=== PATIENT | male | born 1970 | race Caucasian/White ===

== ENCOUNTER 2024-04-22 20:57 | Inpatient (IN) | payer OTHER, SELFPAY ==
[2024-04-22 09:51] VITALS: BP 154/101
[2024-04-22 10:23] VITALS: BMI 25.2
--- NOTE | 2024-04-22 10:25 | ED.GENMED ---
History of Present Illness
General
Chief Complaint: Abdominal Symptoms
Time Seen by Provider: 04/22/24 10:15
History of Present Illness
History of Present Illness:
53 yo male w/ hx of liver transplant (2006, [facility]) presents for evaluation of abd distention and bloating x 5 days. Minimal flatus. Reports minimal pain, but having difficulty tolerating PO intake, vomiting
for 2 days. No back pain, dysuria, hematuria. Reports marijuana use, denies other illicit substance use. No fevers or chills. Currently follows with [facility].
Past History
Past History
ED Past Medical History: HTN
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
Social History
Tobacco: Non-smoker
Alcohol: None
Personal: Single
Living: with family
Review of Systems
Review of Systems
Allergies reviewed?: Yes
All Other Systems: ROS reviewed and negative except as documented in HPI and ROS
Phy Exam
Physical Exam
Physical Exam:
GEN: Well appearing, NAD, WDWN
Eyes: PERRLA, EOMs intact, no scleral icterus
HENT: NCAT, oral mucosa moist
Lungs: CTAB, no wheezes, rales, rhonchi, normal chest wall excursion
Cardiac: RRR, no M/R/G, no peripheral edema. Radial pulses 2+ bilat
Abdomen: Protuberant/distended abdomen, soft and nonrigid, nontender, prior chevron abdominal incisional scar
Neuro: AO x 3
MSK: No gross deformity or ecchymosis. 1+ pitting edema bilateral lower extremities
Skin: No rashes, petechiae. Normal color, no pallor or jaundice.
Psych: Calm, cooperative, proper hygiene
Course
Orders/Labs/Results
Orders:
Orders
04/22/24 10:25
CT Abd/Pel (IV only)-DH only Urgent
Comment:
Reason For Exam: abd distention/constipation
0.9% Sodium Chloride 1000 ml [Nss] 1,000 ml IV BOLUS
04/22/24 10:30
Alcohol Urgent
Complete Blood Count/With Diff Urgent
Comprehensive Metabolic Panel Urgent
Direct Bilirubin Urgent
Comment: ADD ON
04/22/24 12:00
Add On- LAB Urgent
Tests Added?: direct bilirubin
04/22/24 12:13
Add On- LAB Urgent
Tests Added?: alcohol
04/22/24 12:31
Prothrombin Time Urgent
04/22/24 15:18
Urinalysis Reflex To Culture Urgent
Date Specimen was Collected: 04/22/24
Time Specimen was Collected: 10:58
04/22/24 17:01
HYDROmorphone [Dilaudid] 0.5 mg IV NOW STA
04/22/24 20:00
Mycophenolate [Cellcept] 500 mg PO BID
Tacrolimus [Prograf] 2 mg PO Q12
04/22/24 22:00
Escitalopram Oxalate [Lexapro] 10 mg PO HS
Mirtazapine [Remeron] 15 mg PO HS
Abnormal Lab Results
04/22/24 04/22/24 04/22/24
10:30 12:31 15:18
RBC 4.56 L 10^6/uL
(4.70-6.10)
MCH 31.6 H pg
(27.0-31.0)
RDW 16.8 H %
(11.5-14.5)
Absolute Monos (auto) 1.1 H 10^3/uL
(0.1-0.6)
Lymphocytes % 16.2 L %
(20.5-51.1)
Monocytes % 13.4 H %
(1.7-9.3)
PT 15.2 H Sec
(11.4-14.6)
Sodium 130 L mmol/L
(135-145)
Chloride 92 L mmol/L
(98-107)
Carbon Dioxide 31 H mmol/L
(22-30)
Glucose 103 H mg/dl
(70-99)
Total Bilirubin 6.0 H mg/dl
(0.2-1.3)
Direct Bilirubin 4.0 H mg/dl
(0.0-0.4)
AST 117 H U/L
(17-59)
ALT 89 H U/L
(0-50)
Alkaline Phosphatase 169 H U/L
(38-126)
Albumin 3.3 L g/dl
(3.5-5.0)
Urine Bilirubin 1+ A
(Negative)
Urine Urobilinogen 3+ A
(Neg - 1+)
04/22/24 10:30
04/22/24 10:30
Vital Signs
Initial and Last Documented VS:
Initial Vital Signs
Temp Pulse Resp BP Pulse Ox
98.4 F 99 18 154/101 96
04/22/24 09:51 04/22/24 09:51 04/22/24 09:51 04/22/24 09:51 04/22/24 09:51
Last Documented Vital Signs
Temp Pulse Resp BP Pulse Ox
98.4 F 71 18 151/101 96
04/22/24 09:51 04/22/24 15:41 04/22/24 15:41 04/22/24 15:41 04/22/24 15:41
MDM/Problems Addressed
MDM/Problems Addressed:
Patient is found to be in acute liver failure evidenced by transaminitis, elevated T. bili, and marked ascites on CT scan. I discussed the case with the transplant team at [facility] who accepted him for transfer. Unfortunate there
are no beds available at [facility] at this time and thus we will admit overnight to the hospitalist service pending placement at [facility]. May benefit ultimately from paracentesis for diagnostic and therapeutic purposes but will defer this to the admitting
team
*Critical Care Note
Total Time (30-74mins, 75-104mins- exclusive of procedures): Not Applicable
ED Attending Note
-
Portions of this chart may have been created with voice recognition software.� Occasional wrong word or��sound alike� substitutions may have occurred due to the inherent limitations of voice recognition software.
Discharge Plan
Departure
Patient Disposition: Acute [facility]
Date of Disposition: 04/22/24
Time of Disposition: 12:41
Discharge Problem:
Acute hepatic failure
Prescriptions:
No Action
felodipine 5 MG tablet extended release 24 hr
5 mg PO HS
mycophenolate mofetil 500 MG tablet
1,000 mg PO BID
mirtazapine 15 MG tablet
15 mg PO HS
benazepril [Lotensin] 10 MG tablet
10 mg PO DAILY
lysine [L-Lysine] 500 MG tablet
500 mg PO BID
escitalopram oxalate 10 MG tablet
10 mg PO HS
calcium carb-D3-mag ox-zinc ox [Kenny Mag Zinc Plus D3] 1 EACH tablet
1 ea PO TID
prmyl-4-pvu-epa-ala-vit D3 1 EACH tablet,chewable
1 ea PO TID
cannabidiol [Epidiolex] 1 UNIT solution
1 unit inhalation PRN PRN (Reason: anxiety, depression)
Patient Comments:
smokes daily
mycophenolate mofetil 500 MG tablet
1,000 mg PO BID Qty: 120 0RF
Referrals:
Darlene Anthony MD [Family Provider] -
Hospital Transfer
Other hospital: [facility]
I certify that the patient requires transfer: Yes
Discussed case with accepting physician: Rosina
Reason for transfer: higher level of care
Interventions
Interventions:
*Risk Screen - Suicide Last Done: 04/22/24 09:51
*General Assessment Last Done: 04/22/24 09:51
*Neglect/Abuse Screening Last Done: 04/22/24 09:51
BP-Uzlafo-Anszkxflgr Assessment Last Done: 04/22/24 12:09
Discharge Date and Time
Print Language: CYMRAES
[2024-04-22 10:48] LABS: % Basophils 0.7 % (0-2); % Eosinophils 0.8 % (0-6); % Immature Granulocytes 0.2 % (0-0.5); % Lymphocytes 16.2 % (20.5-51.1); % Monocytes 13.4 % (1.7-9.3); % Neutrophils 68.7 % (42.2-75.2); Absolute Basophils 0.1 10^3/uL (0-0.2); Absolute Eosinophils 0.1 10^3/uL (0-0.7); Absolute Lymphocytes 1.4 10^3/uL (1.2-3.4); Absolute Monocytes 1.1 10^3/uL (0.1-0.6); Absolute Neutrophils 5.7 10^3/uL (1.4-6.5); Hematocrit 42.2 % (39.0-52.0); Hemoglobin 14.4 g/dL (13.0-18.0); Mean Corp Hgb Conc. 34.1 g/dL (33.0-37.0); Mean Corpuscular Hgb 31.6 pg (27.0-31.0); Mean Corpuscular Volume 92.5 fL (80.0-94.0); Nucleated Red Blood Cells % 0 % (-); Platelet Count 233 10^3/uL (130-400); Red Blood Cell Count 4.56 10^6/uL (4.70-6.10); Red Cell Dist. Width 16.8 % (11.5-14.5); White Blood Cell Count 8.4 10^3/uL (4.8-10.8)
[2024-04-22] MEDS: NSS 1000 IV (10:58)
[2024-04-22 11:03] LABS: ALT (SGPT) 89 U/L (0-50); AST (SGOT) 117 U/L (17-59); Albumin 3.3 g/dl (3.5-5.0); Alkaline Phosphatase 169 U/L (38-126); Blood Urea Nitrogen 13 mg/dl (9-20); Calcium 8.6 mg/dl (8.4-10.2); Carbon Dioxide 31 mmol/L (22-30); Chloride 92 mmol/L (98-107); Estimated Creatinine Clearance > 125 ml/min; Glucose 103 mg/dl (70-99); Potassium 3.8 mmol/L (3.5-5.1); Sodium 130 mmol/L (135-145); Total Protein 6.7 g/dl (6.3-8.2); eGFR > 60.00
[2024-04-22 12:49] LABS: INR 1.16; PT 15.2 Sec (11.4-14.6)
[2024-04-22 14:46] LABS: Alcohol None Detected
[2024-04-22 15:34] LABS: Urine Albumin Trace (Neg - Trace); Urine Bilirubin 1+ (Negative); Urine Character Clear (Clear); Urine Color Amber; Urine Glucose Negative (Negative); Urine Ketone Negative (Negative); Urine Leukocyte Negative (Negative); Urine Nitrite Negative (Negative); Urine Occult Blood Negative (Negative); Urine Specific Gravity 1.015 (<1.030); Urine Urobilinogen 3+ (Neg - 1+); Urine pH 6.5 (5.0-9.0)
[2024-04-22 15:41] VITALS: BP 151/101
[2024-04-22] MEDS: DILAUDID 0.5 MG IV ×2 (17:09→23:34)
--- NOTE | 2024-04-22 18:14 | ED TECH ---
A Call was placed to [facility] @18:00 pm to check on the Bed status, and still no bed available.Enmanuel Cruz Notified.
--- NOTE | 2024-04-22 19:43 | HPS.HSE ---
Family Physician
-
Family Physician: Darlene Anthony MD
Chief Complaint
-
Abdominal distention and abdominal pain
History of Present Illness
This is a 53-year-old with history of Elijah's disease status post liver transplant in 2005 presenting to the emergency department with approximately 1 week of increasing abdominal pain and distention.
Patient reported that he had blood drawn on routine follow-up a few months ago and was told that his labs were completely normal. Then he started feeling sick about 1/2 weeks ago. Reports nausea increasing abdominal girth right upper quadrant
pain, bloating, and two non-bloody non bilous emesis. Denies having any fevers or chills. Denies any changes to the color of his skin or eyes. Patient denies any alcohol. He reports compliance with his rejection medications. He denies any other
medical medication changes. He denies any Tylenol use. He denies any NSAIDs. He has decreased p.o. intake but denies any vomiting. He denies history of varices and currently denies any melena or hematochezia.
In the emergency department he was afebrile, blood pressure was 150/100 with a pulse of 71. He was satting 96% on room air. CBC was unremarkable with normal white count hemoglobin and platelet counts. Electrolytes were also within normal limits
only except for a sodium of 130. BUN/creatinine were normal. Total bilirubin was 6 with a direct bilirubin of 4 ALT 117 and AST 89. UA was unremarkable. A CT of the abdomen and pelvis shows large ascites, cirrhosis with portal hypertension.
Medical History
Past Medical History
Past Medical History: Reports HTN
Additional Past Medical History:
Elijah disease status post liver transplantation
Past Surgical History: Reports Other (Liver transplantation 2005)
Additional Past Surgical History:
Liver Tx
AVM s/p craniectomy and plate placed
Social History
Tobacco: Non-smoker
Alcohol: Occasional
Drug: Marijuana
Personal: Single
Living: Alone
Family History
Family History: Not pertinent
Allergies / Home Medications
Allergies reflects when Allergies were last updated in [employer].
Home Medications with original date entered in [employer]
Allergy/Medication List:
Allergies
Allergy/AdvReac Type Severity Reaction Status Date / Time
No Known Allergies Allergy Verified 04/22/24 09:51
Home Medications
benazepril 10 mg tablet (Lotensin) 10 mg PO DAILY 02/27/20
cannabidiol 100 mg/mL oral solution (Epidiolex) 1 unit inhalation PRN PRN anxiety, depression 02/27/20
escitalopram oxalate 10 mg tablet 10 mg PO HS 02/27/20
mirtazapine 15 mg tablet 15 mg PO HS 02/27/20
mycophenolate mofetil 500 mg tablet 1,000 mg PO BID 02/27/20
Review of Systems
-
History Source: Patient
Constitutional: Reports No Symptoms
EENT: Reports No Symptoms
Respiratory: Reports No Symptoms
Cardiac: Reports No Symptoms
Abdomen/GI: Reports Abdominal Pain and Nausea
: Reports No Symptoms
Musculoskeletal: Reports No Symptoms
Skin: Reports No Symptoms
Neurological: Reports No Symptoms
Endocrine: Reports No Symptoms
Hematologic/Lymphatic: Reports No Symptoms
Psych: Reports No Symptoms
Physical Exam
Vital Signs
Vital Signs
Temp Pulse Resp BP Pulse Ox
98.4 F 71 18 151/101 96
04/22/24 09:51 04/22/24 15:41 04/22/24 15:41 04/22/24 15:41 04/22/24 15:41
Physical Exam
General: Well Developed, Comfortable and Conversant
HEENT: NormoCephalic, Anicteric, Moist mucous membranes and Atraumatic
Respiratory: Clear
Cardiac: S1/S2 and Regular Rhythm
Breast: Deferred by me
GI: Tender and Distended
Rectal: Deferred by Provider
Genito-urinary: Deferred by me
Musculoskeletal: No Clubbing, No Cyanosis, Edema, Left Lower Extremity (trace) and Edema, Right Lower Extremity (trace)
Skin: Warm
Neuro: AO x 3, Nonfocal/grossly intact and Other (no asterixis)
Hematologic/Lymphatic: No Lymphadenopathy
Psych: Calm
Laboratory Results
-
04/22/24 10:30
04/22/24 10:30
Laboratory Results
PT 15.2 Sec (11.4-14.6) H 04/22/24 12:31
INR 1.16 04/22/24 12:31
Total Bilirubin 6.0 mg/dl (0.2-1.3) H 04/22/24 10:30
AST 117 U/L (17-59) H 04/22/24 10:30
ALT 89 U/L (0-50) H 04/22/24 10:30
Alkaline Phosphatase 169 U/L (38-126) H 04/22/24 10:30
Data Reviewed
-
CT Scan: Report Reviewed by me
Lab Data: Labs Reviewed by me
Old Records: Reviewed
Impression/Plan
-
IMPRESSION:
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
this year and developed abdominal swelling and pain over the last 1/2 weeks. He has jaundice. Patient reports that he has never had a paracentesis since his transplant. He denies any changes to his antirejection medications and reports complete
compliance. He denies any alcohol use. He denies any Tylenol use. Evaluation here shows cirrhosis with portal hypertension and large volume ascites. No evidence of GI bleed.
PLAN:
Acute/Subacute Liver injury - Differential includes acute hepatitis, acute/subacute rejection/ medications or infection. Cannot rule out portal vein thrombosis but no evidence on CT scan.
- admit to med/surg
- acute hepatitis panel
- trend lft and check ammonia level
- tylenol level
- etoh level is negative
- check tac level
- diagnostic and therapeutic paracentesis
- continue cellcept 500 bid and tac 1mg bid for now
- likely will need biopsy, accepted at [facility] and awaiting transfer
- gi consult
DVT PPX - lovenox sq for now
[2024-04-22] MEDS: LEXAPRO 10 MG PO (21:44)
[2024-04-22] MEDS: REMERON 15 MG PO (21:44)
[2024-04-22] MEDS: PROGRAF 1 MG PO (21:44)
[2024-04-22] MEDS: CELLCEPT 500 MG PO (21:44)
[2024-04-22 22:09] VITALS: BP 161/104
[2024-04-22 23:00] VITALS: BP 159/102; BMI 25.6
[2024-04-22] MEDS: ZOFRAN 4 MG IV (23:45)
--- NOTE | 2024-04-23 06:50 | CON.GI ---
Addendum entered and electronically signed by Christina Stuart MD 04/23/24 16:05:
I saw and examined the patient.
The HYDRAULIC PLUMBER or PA's note was reviewed and I agree with the note.
Comment: 53-year-old male with history of Elijah's disease status post OLT in 2005 in [facility], currently on immunosuppression with tacrolimus and mycophenolate mofetil, managed by Dr. Hooker at [place] though last seen at least a couple of
years ago now presenting with abdominal discomfort, bloating and distention in the last week apart from episodes of vomiting bilious material on and off. He does report chronic constipation but other than that he reports that he has been healthy.
Denies any history of GI bleeding, does not take any laxatives on a regular basis. No unintentional weight loss or NSAID use. No alcohol use.
In the emergency room, CBC was within normal limits, CMP showed total bilirubin of 6.0 with a direct of 4.0, AST of 117, ALT of 89 and alkaline phosphatase of 169 with albumin of 3.3 and alpha-fetoprotein of 4.1. Blood alcohol level negative.
Hepatitis A/B/C serologies negative. No previous upper endoscopy or colonoscopy.
In the emergency room, CT scan of the abdomen and pelvis with IV contrast only showing evidence of large volume abdominal pelvic ascites, evidence of cirrhosis of the liver with portal hypertensive changes.
Diagnostic/therapeutic paracentesis done by IR with 6.5 L of straw-colored ascitic fluid removed.
SSAG >1.1 with history of portal hypertensive etiology for the ascites, no evidence of SBP.
-Decompensated liver disease with cirrhosis post liver transplant for Elijah's disease , currently on immunosuppression. [id number]
Hepatitis serologies negative and alpha-fetoprotein negative
Tacrolimus level pending
Limited abdominal imaging without any evidence of liver lesions
Unclear etiology for decompensation at this time, no evidence of GI bleeding or infection.
He is scheduled to be transferred to [place] this evening to his primary material requisitioner Dr. Hooker.
Will follow patient closely until transfer.
Original Note:
Consultation
-
Date/Time Consultation Requested: 04/22/24 6330
Date/Time Consultation Performed: 04/23/24 0840
Requesting Provider: Ángela Gonzalez MD
Performing Provider: VISHNU Washburn, Christina Stuart MD
Reason for Consultation: new onset ascites
Medical History
Chief Complaint / HPI
Chief Complaint: abdominal distention
History of Present Illness:
Pt is a 53yo with hx Elijah's disease with liver transplant in 2005 at [facility](follows with Dr. Hooker at [place]--last visit several years ago and last labs 3-6 months ago) , AVM with prior cranial surgery, prior
moise, HTN, depression, PTSD, lipoma resection and now presents with 5 days of bloating. On admission noted with stable CBC with normal platelets, INR 1.16, creat 0.9, Na 130, bili 6, D bili 4, AST 117, ALT 89, alk phos [address] was
completed on admission with hepatic cirrhosis, portal HTN changes and large volume of ascites.
In review with patient he admits to increased GERD and vomiting small amount of non bloody emesis. He also admits to abdominal pressure and constipation with no stools for several days. He otherwise admits to wt gain but denies dysphagia,
hematemesis, diarrhea, or rectal bleeding. Last EGD/colon completed prior to transplant in 2005. No issue with confusion or sleepiness prior to admission. Pt has been accepted at [place] and due for transfer.
Past Medical History
Past Medical History: HTN, Hypothyroidism, Psychiatric (anxiety/depression) and Other (Elijah's disease s/p liver transplant 2006 on chronic suppressive therapy, right neck lipoma with excision, RLQ abdominal wall lipoma resection, DDD, frontal
AVM's, PTSD, inguinal hernia per CT)
Past Surgical History: Brain (AVM with portionof skill removed and plate placed), Cholecystectomy and Other (liver transplant 2006, adrenalectomy per CT)
Social History
Tobacco: Non-Smoker
Alcohol: None
Drug: Marijuana
Living: Alone
Employment: Public Assistance
Family History
Family History: Other (sister with hx Elijah's disease )
Allergies / Home Medications
Allergy/AdvReac Type Severity Reaction Status Date / Time
No Known Allergies Allergy Verified 04/22/24 09:51
�Medication �Instructions �Recorded
benazepril 10 mg tablet (Lotensin) 10 mg PO DAILY 02/27/20
escitalopram oxalate 10 mg tablet 10 mg PO HS 02/27/20
mirtazapine 15 mg tablet 15 mg PO HS 02/27/20
mycophenolate mofetil 500 mg tablet 500 mg PO BID 02/27/20
tacrolimus 1 mg capsule, 1 mg PO Q12H 04/22/24
immediate-release
Review of Systems
-
History Source: Patient
Constitutional: Reports Weight Gain
EENT: Reports No Symptoms
Respiratory: Reports No Symptoms
Cardiac: Reports No Symptoms
Abdomen/GI: Reports Abdominal Pain, Nausea, Vomiting and Constipated
: Reports No Symptoms
Musculoskeletal: Reports No Symptoms
Skin: Reports No Symptoms
Neurological: Reports Weakness
Endocrine: Reports No Symptoms
Hematologic/Lymphatic: Reports No Symptoms
Vital Signs
Temp Pulse Resp BP Pulse Ox
97.5 F 63 18 159/102 95
04/22/24 23:00 04/22/24 23:00 04/22/24 23:00 04/22/24 23:00 04/22/24 23:00
Physical Exam
Exam
General: Well Developed, Well Nourished and No Apparent Distress
HEENT: Normocephalic and Anicteric
Respiratory: Clear
Cardiac: Regular Rhythm
GI: Soft, Tender (mild ) and Distended
Musculoskeletal: No Clubbing and No Cyanosis
Skin: Warm and Dry
Neuro: Awake, Alert and AO x 3
Psych: Calm
Results
WBC 8.4 10^3/uL (4.8-10.8) 04/22/24 10:30
Hgb 14.4 g/dL (13.0-18.0) 04/22/24 10:30
Hct 42.2 % (39.0-52.0) 04/22/24 10:30
MCV 92.5 fL (80.0-94.0) 04/22/24 10:30
Plt Count 233 10^3/uL (130-400) 04/22/24 10:30
Absolute Neuts (auto) 5.7 10^3/uL (1.4-6.5) 04/22/24 10:30
PT 15.2 Sec (11.4-14.6) H 04/22/24 12:31
INR 1.16 04/22/24 12:31
Sodium 130 mmol/L (135-145) L 04/22/24 10:30
Potassium 3.8 mmol/L (3.5-5.1) 04/22/24 10:30
Chloride 92 mmol/L (98-107) L 04/22/24 10:30
Carbon Dioxide 31 mmol/L (22-30) H 04/22/24 10:30
BUN 13 mg/dl (9-20) 04/22/24 10:30
Creatinine 0.9 mg/dL (0.7-1.3) 04/22/24 10:30
Calcium 8.6 mg/dl (8.4-10.2) 04/22/24 10:30
Total Bilirubin 6.0 mg/dl (0.2-1.3) H 04/22/24 10:30
AST 117 U/L (17-59) H 04/22/24 10:30
ALT 89 U/L (0-50) H 04/22/24 10:30
Alkaline Phosphatase 169 U/L (38-126) H 04/22/24 10:30
Hepatitis A IgM Ab Cancelled 04/22/24 20:00
Hep Bs Antibody Cancelled 04/22/24 20:00
Hep B Core IgM Ab Cancelled 04/22/24 20:00
Hepatitis C Antibody Cancelled 04/22/24 20:00
Diagnostic Image Results:
04/22/24 CT Abd/Pel (IV only)-DH only
1. Hepatic cirrhosis. Portal hypertension changes.
2. Large volume of abdominopelvic ascites.
Prior GI Procedures:
EGD: last prior to 2005
Colonoscopy: last prior to 2005
Assessment / Plan
-
Pt is a 53yo with hx Elijah's disease with liver transplant in 2005 at [facility], AVM with prior cranial surgery, prior moise, HTN, depression, PTSD, lipoma resection and now presents with 5 days of bloating. On
admission noted with stable CBC with normal platelets, INR 1.16, creat 0.9, Na 130, bili 6, D bili 4, AST 117, ALT 89, alk phos [address] was completed on admission with hepatic cirrhosis, portal HTN changes and large volume of ascites.
-new onset ascites
-CT with changes of cirrhosis/portal HTN
-hx Elijah's disease with prior liver transplant in [place] in 2005
-hyponatremia
-mild hypoalbuminemia
other med problems:
-AVM with prior cranial surgery
-HTN
-depression
-PTSD
-lipoma resection
-CT with adrenalectomy
-CT with inguinal hernia
PLAN:
Etiology of new ascites related to decompensated liver disease and cirrhosis vs other etiology - will need to calculate SAAG and eval for cardiac, malignancy vs other
agree with paracentesis for fluid analysis and cytology
MELD 3.0 19
hepatitis and tac level pending
add AFP
pt is for transfer to [place]-- will need follow up via transfer vs if transfer delayed OP follow up-- pt did state some difficulty with rides to [facility] but advised will need at least telehealth visit and also reviewed follow up with Dr. Mistry at
[facility].
cont to follow
-
-
Thank you for consultation and allowing me to participate in the patient's care. Please call the nuclear control operator GI physician during the after hours with any questions or concerns.
[2024-04-23 07:17] VITALS: BP 151/86
[2024-04-23 08:13] LABS: Ammonia 9 umol/L (9-30)
[2024-04-23 08:23] LABS: Hematocrit 40.4 % (39.0-52.0); Mean Corp Hgb Conc. 34.7 g/dL (33.0-37.0); Mean Corpuscular Hgb 32.1 pg (27.0-31.0); Mean Corpuscular Volume 92.7 fL (80.0-94.0); Mean Platelet Volume 9.5 fL (7.4-10.4); Platelet Count 196 10^3/uL (130-400); Red Blood Cell Count 4.36 10^6/uL (4.70-6.10); Red Cell Dist. Width 16.5 % (11.5-14.5); White Blood Cell Count 9.6 10^3/uL (4.8-10.8)
[2024-04-23 08:31] LABS: INR 1.22; PT 15.7 Sec (11.4-14.6)
[2024-04-23 08:58] LABS: Blood Urea Nitrogen 17 mg/dl (9-20); Calcium 8.1 mg/dl (8.4-10.2); Carbon Dioxide 32 mmol/L (22-30); Chloride 91 mmol/L (98-107); Estimated Creatinine Clearance > 125 ml/min; Glucose 90 mg/dl (70-99); Sodium 129 mmol/L (135-145); eGFR > 60.00
[2024-04-23] MEDS: DILAUDID 0.5 MG IV ×2 (09:01→14:56)
[2024-04-23] MEDS: ZESTRIL 10 MG PO (09:02)
[2024-04-23] MEDS: ZOFRAN 4 MG IV ×2 (09:02→14:57)
[2024-04-23] MEDS: CELLCEPT 500 MG PO (09:02)
[2024-04-23] MEDS: PROGRAF 1 MG PO (09:03)
[2024-04-23 09:04] LABS: Potassium 4.2 mmol/L (3.5-5.1)
[2024-04-23 09:23] LABS: Hepatitis B Surface Antigen Negative (Negative)
[2024-04-23 09:41] LABS: Hepatitis B Core Ab, Total Negative (Negative); Hepatitis B Surface Antibody Negative; Hepatitis C Antibody Negative (Negative)
[2024-04-23 10:05] VITALS: BP 157/108; BP_SYST 69
[2024-04-23 11:08] LABS: Hepatitis A IgM Antibody Negative (Negative)
[2024-04-23 11:42] VITALS: BP 147/105; BP_SYST 66
[2024-04-23 11:52] VITALS: BP 147/105
[2024-04-23 12:37] LABS: Body Fluid WBC 84 /CUMM
[2024-04-23 12:38] LABS: Body Fluid Mononuclear 70.3 %; Body Fluid Polymorphonuclear 29.7 %
[2024-04-23 13:16] LABS: Body Fluid Second Tech AMA
[2024-04-23 14:17] LABS: Body Fluid Albumin < 1.0 g/dl; Body Fluid LDH < 90 U/L; Body Fluid Protein < 2.0 g/dl
--- NOTE | 2024-04-23 15:49 | CM ---
Alert awake oriented patient who lives alone in a studio with 1 step to enter.He is independent in all activities of daily living.He has follow up care at [facility] for liver transplant.Pt for transfer to [facility] when bed available.
Pharmacy [facility]
PCP DR Betancur
PLAN To [facility] when bed available
[2024-04-23 15:58] VITALS: BP 124/82
--- NOTE | 2024-04-23 16:23 | PTCARENOTE ---
report given to danii edgar
[2024-04-23 16:30] LABS: Body Fluid Amylase < 30 U/L
== END 2024-04-23 16:48 | disposition short-term general hospital (02) | DRG 442 ==
LOC: 4 EAST ACU 20:57
PROVIDERS: Physician Assistant; Radiology Vascular & Interventional Radiology; ADMITTING PHYSICIAN Internal Medicine; ATTENDING PHYSICIAN Internal Medicine; CONSULT PHYSICIAN Internal Medicine Gastroenterology; EMERGENCY PHYSICIAN Emergency Medicine; FAMILY PHYSICIAN Emergency Medicine
PROC: 0W9G3ZZ Drainage of Peritoneal Cavity, Percutaneous Approach (ICD-10-PCS; 2024-04-23)
DX: T86.49 Other complications of liver transplant (principal); D84.821 Immunodeficiency due to drugs; E87.1 Hypo-osmolality and hyponatremia; R18.8 Other ascites; K76.6 Portal hypertension; K74.60 Unspecified cirrhosis of liver; E03.9 Hypothyroidism, unspecified; F32.A Depression, unspecified; F41.9 Anxiety disorder, unspecified; F43.10 Post-traumatic stress disorder, unspecified; I10 Essential (primary) hypertension; K21.9 Gastro-esophageal reflux disease without esophagitis; K59.09 Other constipation; Y83.0 Surgical operation with transplant of whole organ as the cause of abnormal reaction of the patient, or of later complication, without mention of misadventure at the time of the procedure; Z79.621 Long term (current) use of calcineurin inhibitor; Z79.624 Long term (current) use of inhibitors of nucleotide synthesis
CPT/HCPCS: 88305; 49083; 74177; 80048; 80053; 80197; 81003; 82042; 82077; 82105; 82140; 82150; 82248; 83615; 84157; 85025; 85027; 85610; 86704; 86706; 86709; 86803; 87015; 87070; 87205; 87340; 88112; 88341; 88342; 89051; 96361; 96374; 99284; Q9967

== ENCOUNTER 2024-05-03 16:20 | Inpatient (IN) | payer OTHER, SELFPAY ==
[2024-05-03] VITALS (15 sets, daily range): BP systolic 114–155; BP diastolic 83–109; PULSE 64–80; BMI 23.1
--- NOTE | 2024-05-03 12:04 | ED.GENMED ---
ED Provider Triage
<Martell Cruz PA-C - Last Filed: 05/03/24 12:06>
-
Patient seen by provider in Triage?: Seen in Triage
53 yo male w/ hx of liver transplant here with hematemesis. prior hx of variceal bleeding prior to hepatic transplant. Was here in March for new jaundice and ascites, underwent paracentesis >6L. Was subseqeuently transferred to [facility]. Denies
fevers. Denies ETOH use.
Remains jaundiced, clinically stable. Non distended abdomen. No active vomiting/wretching.
Check CBC, CMP, type and screen, coags.
History of Present Illness
<Martell Cruz PA-C - Last Filed: 05/03/24 12:06>
General
Chief Complaint: Vomiting Blood
Time Seen by Provider: 05/03/24 12:34
<Adrián Arvizu MD - Last Filed: 05/03/24 19:41>
General
Source: patient
Exam Limitations: none
Nursing documentation reviewed up to this point in time: agreed with
History of Present Illness
History of Present Illness:
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
vomiting episodes, which patient describes as 'mouthful'. Patient also reports having had multiple bowel movements, which were nonbloody. Denies abdominal pain. Denies fever. Denies coughing. Denies dizziness. Denies weakness. Denies
shortness of breath. Patient states that he is currently being evaluated for potential second liver transplant.
Past History
<Martell Cruz PA-C - Last Filed: 05/03/24 12:06>
Past History
ED Past Medical History: HTN
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
Social History
Tobacco: Non-smoker
Alcohol: None
Personal: Single
Living: with family
Review of Systems
<Adrián Arvizu MD - Last Filed: 05/03/24 19:41>
Review of Systems
Allergies reviewed?: Yes
All Other Systems: ROS reviewed and negative except as documented in HPI and ROS
Constitutional: Reports no symptoms
Respiratory: Reports no symptoms
Cardiac: Reports no symptoms
ABD/GI: Reports vomiting and other (Hematemesis); Denies abdominal pain
: Reports no symptoms
Musculoskeletal: Reports no symptoms
Skin: Reports no symptoms
Neurological: Reports no symptoms; Denies weakness
Phy Exam
<Adrián Arvizu MD - Last Filed: 05/03/24 19:41>
Physical Exam
Physical Exam:
Physical Exam
General: no apparent distress, not acutely ill. afebrile
Head: nc/at. eomi
Neck: supple. no meningeal signs.
Heart: s1/s2 regular rate and rhythm, no murmur. equal radial pulses.
Lungs: no acute respiratory distress. clear bilaterally
Abdomen: normal bowel sounds. not tender, but with mild distention
Neuro: alert and oriented x 3. no focal neurological deficits
Skin: no rash
Psychiatric: well kept. interactive and cooperative
Extremities: no edema. no calf tenderness.
Course
<Martell Cruz PA-C - Last Filed: 05/03/24 12:06>
Orders/Labs/Results
Orders:
Orders
05/03/24 Breakfast
NPO
Allow oral meds: Yes
Allow clear liquids: No
05/03/24 12:09
Blood Group&Type Urgent
BBK Wristband Number:
Basic Metabolic Panel Urgent
Complete Blood Count/With Diff Urgent
Prothrombin Time Urgent
05/03/24 12:40
Pantoprazole [Protonix IV] 80 mg IV NOW STA
05/03/24 13:01
Type+Screen Urgent
BBK Wristband Number:
Comprehensive Metabolic Panel Urgent
05/03/24 14:18
IV Insert/Care/Rem.- Treatment PRN
Octreotide [Sandostatin] 50 mcg IV NOW STA
Pantoprazole 80 mg/100 ml Nss [Protonix] 80 mg in 100 ml IV NOW
05/03/24 14:28
Octreotide Acetate [Sandostatin] 600 mcg 0.9% Sodium Chloride 500 ml [Nss] 500 ml IV NOW
05/03/24 14:57
CefTRIAXone [Rocephin] 1,000 mg IV NOW STA
05/03/24 14:59
Sterile Water [Sterile Water For Injection] 10 ml IV NOW STA
05/03/24 15:01
Obtain Records As Directed
Dates of Information to be Released: 03/2024
Type of Information Requested: Other
If Other, list type of info requested: liver biopsy, discharge summary, labs, testing
Obtain Records from: [facility]
05/03/24 15:03
Admit/Transfer Patient As Directed
Co-Sign Provider:
Level of Care: Inpatient admission
Assign to:: Telemetry
Physician / Group: nathan bailey
Diagnosis: GL bleed
Reason for Telemetry: Other
Other Reason for Telemetry: GI bleed
Date to Stop Telemetry: 05/05/24
Time to Stop Telemetry: 11:00
Reason for Hospitalization: GI bleed
Expected length of stay greater than two midnights?: Yes
ELOS- Estimated Length of Stay in days: 3
I certify the patient meets the requirements for IP care: Yes
PRN Pain Medication Management As Directed
May give lesser potent ordered pain med per pt: Yes
preference::
Protocol:: Medication orders for pain may be administered in a
manner that supports deferring to patient preference
when the pt is:
- Requesting an ordered lesser potent pain medication.
Least to most potent pain medications are defined
as: acetaminophen < NSAID < tramadol < opioids
(morphine, oxycodone, hydromorphone).
- Requesting a lesser dose of the same medication IF
ORDERED.
- Requesting a less intrusive route of administration
if both routes are prescribed by the provider (PO <
IV).
05/03/24 15:05
Code Status As Directed
Resuscitation Status: Full Code
05/03/24 15:26
Midazolam HCl [Versed] 2 mg .ROUTE .STK-MED ONE
05/03/24 15:27
Glycopyrrolate [Robinul] 0.2 mg .ROUTE .STK-MED ONE
Lidocaine 2% Mpf [Xylocaine Mpf 2%] 100 mg .ROUTE .STK-MED ONE
Propofol [Diprivan] 80 ml .ROUTE .STK-MED
05/03/24 16:06
Fluid Culture with Gram Stain Routine
LISA Source: Peritoneal Fluid
Specimen Description:
Comment: Post Procedure
05/03/24 16:07
IRAD CONSULT Routine
Consulting Provider: Julio Ricardo
Was physician already notified: Yes
Reason for Consult/Procedure: paracentesis as tolerated to rule out SBP
Acknowledgement that appropriate orders are entered: Yes
Body Fluid Albumin Routine
Fluid Source: Peritoneal (Ascites)
Body Fluid Cell Count Routine
What is the Body Fluid: peritoneal fluid
Comment: post procedure
Body Fluid Protein Routine
Fluid Source: Peritoneal (Ascites)
Notify MD As Directed
Notify physician if: Notify GI provider workers compensation defense attorney of volume removed when paracentesis complete.
05/03/24 16:28
Pantoprazole 80 mg/100 ml Nss [Protonix] 80 mg in 100 ml IV Q10H
05/03/24 16:28
GASTROINTESTINAL CONSULT Routine
Consulting Provider: Omaira Baires
Was physician already notified: Yes
Activity As Directed
Activity Level: As Tolerated
Compression Sleeves [Pneumatic Compression Sleeves] As Directed
Type: Thigh high
INT (Intravenous Needle Therapy) As Directed
Comment: Place 2 IV catheters of the largest bore possible until stable
Orthostatic Vital Signs As Directed
Orthostatic VS Frequency: Now
Comment: then every four hours for twenty-four hours
Vital Signs As Directed
Frequency: Per unit guidelines
DX Deep Vein Thrombosis Video Routine
05/03/24 18:08
H&H Q6H
05/03/24 20:00
Carvedilol [Coreg] 6.25 mg PO BID
Magnesium l-Lactate [Mag-Tab Sr] 84 mg PO BID
Simethicone [Mylicon] 80 mg PO BID
Tacrolimus [Prograf] 0.5 mg PO Q12H
05/03/24 22:00
Escitalopram Oxalate [Lexapro] 10 mg PO HS
Mirtazapine [Remeron] 15 mg PO HS
05/04/24 00:00
H&H Q6H
05/04/24 02:00
Octreotide Acetate [Sandostatin] 600 mcg 0.9% Sodium Chloride 500 ml [Nss] 500 ml IV Q12H
05/04/24 06:00
Ammonia IN AM
Complete Blood Count/No Diff IN AM
Comprehensive Metabolic Panel IN AM
H&H Q6H
05/04/24 08:00
Pantoprazole [Protonix IV] 40 mg IV BID
05/04/24 16:00
CefTRIAXone [Rocephin] 1,000 mg IV Q24H
Sterile Water [Sterile Water For Injection] 10 ml IV Q24H
05/05/24 06:00
Comprehensive Metabolic Panel IN AM
05/05/24 11:00
DC Protocol for Telemetry ONCE
05/06/24 06:00
Comprehensive Metabolic Panel IN AM
05/07/24 06:00
Comprehensive Metabolic Panel IN AM
Abnormal Lab Results
05/03/24 05/03/24
12:09 13:01
RBC 4.23 L 10^6/uL
(4.70-6.10)
Hct 38.8 L %
(39.0-52.0)
MCH 31.9 H pg
(27.0-31.0)
RDW 15.2 H %
(11.5-14.5)
Absolute Monos (auto) 1.0 H 10^3/uL
(0.1-0.6)
Lymphocytes % 19.3 L %
(20.5-51.1)
Monocytes % 13.8 H %
(1.7-9.3)
PT 14.8 H Sec
(11.4-14.6)
Sodium 130 L mmol/L 132 L mmol/L
(135-145) (135-145)
Chloride 96 L mmol/L 97 L mmol/L
(98-107) (98-107)
Glucose 111 H mg/dl 108 H mg/dl
(70-99) (70-99)
Calcium 8.3 L mg/dl
(8.4-10.2)
Total Bilirubin 2.9 H mg/dl
(0.2-1.3)
AST 107 H U/L
(17-59)
ALT 70 H U/L
(0-50)
Alkaline Phosphatase 132 H U/L
(38-126)
Total Protein 6.1 L g/dl
(6.3-8.2)
Albumin 3.1 L g/dl
(3.5-5.0)
05/03/24 12:09
05/03/24 13:01
Vital Signs
Initial and Last Documented VS:
Initial Vital Signs
Temp Pulse Resp BP Pulse Ox
98.0 F 61 20 123/83 98
05/03/24 11:59 05/03/24 11:59 05/03/24 11:59 05/03/24 11:59 05/03/24 11:59
Last Documented Vital Signs
Temp Pulse Resp BP Pulse Ox
97.7 F 64 16 148/99 98
05/03/24 18:40 05/03/24 18:40 05/03/24 18:40 05/03/24 18:40 05/03/24 18:40
<Adrián Arvizu MD - Last Filed: 05/03/24 19:41>
Orders/Labs/Results
Orders:
Orders
05/03/24 Breakfast
NPO
Allow oral meds: Yes
Allow clear liquids: No
05/03/24 12:09
Blood Group&Type Urgent
BBK Wristband Number:
Basic Metabolic Panel Urgent
Complete Blood Count/With Diff Urgent
Prothrombin Time Urgent
05/03/24 12:40
Pantoprazole [Protonix IV] 80 mg IV NOW STA
05/03/24 13:01
Type+Screen Urgent
BBK Wristband Number:
Comprehensive Metabolic Panel Urgent
05/03/24 14:18
IV Insert/Care/Rem.- Treatment PRN
Octreotide [Sandostatin] 50 mcg IV NOW STA
Pantoprazole 80 mg/100 ml Nss [Protonix] 80 mg in 100 ml IV NOW
05/03/24 14:28
Octreotide Acetate [Sandostatin] 600 mcg 0.9% Sodium Chloride 500 ml [Nss] 500 ml IV NOW
05/03/24 14:57
CefTRIAXone [Rocephin] 1,000 mg IV NOW STA
05/03/24 14:59
Sterile Water [Sterile Water For Injection] 10 ml IV NOW STA
05/03/24 15:01
Obtain Records As Directed
Dates of Information to be Released: 03/2024
Type of Information Requested: Other
If Other, list type of info requested: liver biopsy, discharge summary, labs, testing
Obtain Records from: [facility]
05/03/24 15:03
Admit/Transfer Patient As Directed
Co-Sign Provider:
Level of Care: Inpatient admission
Assign to:: Telemetry
Physician / Group: nathan bailey
Diagnosis: GL bleed
Reason for Telemetry: Other
Other Reason for Telemetry: GI bleed
Date to Stop Telemetry: 05/05/24
Time to Stop Telemetry: 11:00
Reason for Hospitalization: GI bleed
Expected length of stay greater than two midnights?: Yes
ELOS- Estimated Length of Stay in days: 3
I certify the patient meets the requirements for IP care: Yes
PRN Pain Medication Management As Directed
May give lesser potent ordered pain med per pt: Yes
preference::
Protocol:: Medication orders for pain may be administered in a
manner that supports deferring to patient preference
when the pt is:
- Requesting an ordered lesser potent pain medication.
Least to most potent pain medications are defined
as: acetaminophen < NSAID < tramadol < opioids
(morphine, oxycodone, hydromorphone).
- Requesting a lesser dose of the same medication IF
ORDERED.
- Requesting a less intrusive route of administration
if both routes are prescribed by the provider (PO <
IV).
05/03/24 15:05
Code Status As Directed
Resuscitation Status: Full Code
05/03/24 15:26
Midazolam HCl [Versed] 2 mg .ROUTE .STK-MED ONE
05/03/24 15:27
Glycopyrrolate [Robinul] 0.2 mg .ROUTE .STK-MED ONE
Lidocaine 2% Mpf [Xylocaine Mpf 2%] 100 mg .ROUTE .STK-MED ONE
Propofol [Diprivan] 80 ml .ROUTE .STK-MED
05/03/24 16:06
Fluid Culture with Gram Stain Routine
LISA Source: Peritoneal Fluid
Specimen Description:
Comment: Post Procedure
05/03/24 16:07
IRAD CONSULT Routine
Consulting Provider: Julio Ricardo
Was physician already notified: Yes
Reason for Consult/Procedure: paracentesis as tolerated to rule out SBP
Acknowledgement that appropriate orders are entered: Yes
Body Fluid Albumin Routine
Fluid Source: Peritoneal (Ascites)
Body Fluid Cell Count Routine
What is the Body Fluid: peritoneal fluid
Comment: post procedure
Body Fluid Protein Routine
Fluid Source: Peritoneal (Ascites)
Notify MD As Directed
Notify physician if: Notify GI provider workers compensation defense attorney of volume removed when paracentesis complete.
05/03/24 16:28
Pantoprazole 80 mg/100 ml Nss [Protonix] 80 mg in 100 ml IV Q10H
05/03/24 16:28
GASTROINTESTINAL CONSULT Routine
Consulting Provider: Omaira Baires
Was physician already notified: Yes
Activity As Directed
Activity Level: As Tolerated
Compression Sleeves [Pneumatic Compression Sleeves] As Directed
Type: Thigh high
INT (Intravenous Needle Therapy) As Directed
Comment: Place 2 IV catheters of the largest bore possible until stable
Orthostatic Vital Signs As Directed
Orthostatic VS Frequency: Now
Comment: then every four hours for twenty-four hours
Vital Signs As Directed
Frequency: Per unit guidelines
DX Deep Vein Thrombosis Video Routine
05/03/24 18:08
H&H Q6H
05/03/24 20:00
Carvedilol [Coreg] 6.25 mg PO BID
Magnesium l-Lactate [Mag-Tab Sr] 84 mg PO BID
Simethicone [Mylicon] 80 mg PO BID
Tacrolimus [Prograf] 0.5 mg PO Q12H
05/03/24 22:00
Escitalopram Oxalate [Lexapro] 10 mg PO HS
Mirtazapine [Remeron] 15 mg PO HS
05/04/24 00:00
H&H Q6H
05/04/24 02:00
Octreotide Acetate [Sandostatin] 600 mcg 0.9% Sodium Chloride 500 ml [Nss] 500 ml IV Q12H
05/04/24 06:00
Ammonia IN AM
Complete Blood Count/No Diff IN AM
Comprehensive Metabolic Panel IN AM
H&H Q6H
05/04/24 08:00
Pantoprazole [Protonix IV] 40 mg IV BID
05/04/24 16:00
CefTRIAXone [Rocephin] 1,000 mg IV Q24H
Sterile Water [Sterile Water For Injection] 10 ml IV Q24H
05/05/24 06:00
Comprehensive Metabolic Panel IN AM
05/05/24 11:00
DC Protocol for Telemetry ONCE
05/06/24 06:00
Comprehensive Metabolic Panel IN AM
05/07/24 06:00
Comprehensive Metabolic Panel IN AM
Abnormal Lab Results
05/03/24 05/03/24
12:09 13:01
RBC 4.23 L 10^6/uL
(4.70-6.10)
Hct 38.8 L %
(39.0-52.0)
MCH 31.9 H pg
(27.0-31.0)
RDW 15.2 H %
(11.5-14.5)
Absolute Monos (auto) 1.0 H 10^3/uL
(0.1-0.6)
Lymphocytes % 19.3 L %
(20.5-51.1)
Monocytes % 13.8 H %
(1.7-9.3)
PT 14.8 H Sec
(11.4-14.6)
Sodium 130 L mmol/L 132 L mmol/L
(135-145) (135-145)
Chloride 96 L mmol/L 97 L mmol/L
(98-107) (98-107)
Glucose 111 H mg/dl 108 H mg/dl
(70-99) (70-99)
Calcium 8.3 L mg/dl
(8.4-10.2)
Total Bilirubin 2.9 H mg/dl
(0.2-1.3)
AST 107 H U/L
(17-59)
ALT 70 H U/L
(0-50)
Alkaline Phosphatase 132 H U/L
(38-126)
Total Protein 6.1 L g/dl
(6.3-8.2)
Albumin 3.1 L g/dl
(3.5-5.0)
05/03/24 12:09
05/03/24 13:01
Vital Signs
Initial and Last Documented VS:
Initial Vital Signs
Temp Pulse Resp BP Pulse Ox
98.0 F 61 20 123/83 98
05/03/24 11:59 05/03/24 11:59 05/03/24 11:59 05/03/24 11:59 05/03/24 11:59
Last Documented Vital Signs
Temp Pulse Resp BP Pulse Ox
97.7 F 64 16 148/99 98
05/03/24 18:40 05/03/24 18:40 05/03/24 18:40 05/03/24 18:40 05/03/24 18:40
<Adrián Arvizu MD - Last Filed: 05/03/24 19:41>
MDM/Problems Addressed
MDM/Problems Addressed:
Discussed with oncall GI physician (Dr.Hannah Baires) who feels that patient will benefit from transfer to [facility], as he is still being evaluated for potential liver transplant.
Discussed with hepatology service @ [facility] - due to lack of bed availability and need for acute tx, i.e. upper endoscopy, requests admission @ for treatment. If there is prolonged hospitalization or unforeseen complications, hepatology service to
be contacted again.
Discussed again with (GI) - understands admission @ . Recommends starting patient on protonix and octreotide gtt.
Blood transfusion consent on the chart.
Critical care statement: A total of 40 minutes of critical care time was provided for this patient. This includes management of unstable vital signs, evaluation of the patient at bedside, reviewing the patient's pertinent medical records, discussion
with consultants, review of old EKGs and review of pertinent medical records. This time with separate from time utilized to perform the aforementioned documented procedures
<Adrián Arvizu MD - Last Filed: 05/03/24 19:41>
*Critical Care Note
Total Time (30-74mins, 75-104mins- exclusive of procedures): 40 min
ED Attending Note
<Martell Cruz PA-C - Last Filed: 05/03/24 12:06>
-
Portions of this chart may have been created with voice recognition software.� Occasional wrong word or��sound alike� substitutions may have occurred due to the inherent limitations of voice recognition software.
Discharge Plan
Departure
Patient Disposition: Admit
Date of Disposition: 05/03/24
Time of Disposition: 14:23
Admit to: Telemetry
Presentation/result/management discussed w/ accepting MD/: Hospitalist
Discharge Problem:
Hematemesis
Interventions
Interventions:
*Risk Screen - Suicide Last Done: 05/03/24 12:22
*General Assessment Last Done: 05/03/24 11:59
*Neglect/Abuse Screening Last Done: 05/03/24 12:22
ED- Fall Risk Assessment Last Done: 05/03/24 12:22
*ED COVID-19 Vaccine History Last Done: 05/03/24 13:03
*Nursing Disposition Last Done: 05/03/24 15:21
NT-Uhjqby-Ktvjybenwj Assessment Last Done: 05/03/24 12:22
ED- Cardiac Assessment Last Done: 05/03/24 12:22
ED- Pulmonary Assessment Last Done: 05/03/24 12:22
Discharge Date and Time
Discharge Date/Time: 05/03/24 15:21
[2024-05-03 12:18] LABS: % Basophils 1.1 % (0-2); % Eosinophils 3.5 % (0-6); % Immature Granulocytes 0.1 % (0-0.5); % Lymphocytes 19.3 % (20.5-51.1); % Monocytes 13.8 % (1.7-9.3); % Neutrophils 62.2 % (42.2-75.2); Absolute Basophils 0.1 10^3/uL (0-0.2); Absolute Eosinophils 0.3 10^3/uL (0-0.7); Absolute Lymphocytes 1.4 10^3/uL (1.2-3.4); Absolute Neutrophils 4.5 10^3/uL (1.4-6.5); Hematocrit 38.8 % (39.0-52.0); Hemoglobin 13.5 g/dL (13.0-18.0); Mean Corp Hgb Conc. 34.8 g/dL (33.0-37.0); Mean Corpuscular Hgb 31.9 pg (27.0-31.0); Mean Corpuscular Volume 91.7 fL (80.0-94.0); Mean Platelet Volume 9.7 fL (7.4-10.4); Nucleated Red Blood Cells % 0 % (-); Platelet Count 171 10^3/uL (130-400); Red Blood Cell Count 4.23 10^6/uL (4.70-6.10); Red Cell Dist. Width 15.2 % (11.5-14.5); White Blood Cell Count 7.2 10^3/uL (4.8-10.8)
[2024-05-03 12:37] LABS: INR 1.13; PT 14.8 Sec (11.4-14.6)
[2024-05-03 12:39] LABS: Blood Urea Nitrogen 18 mg/dl (9-20); Calcium 8.5 mg/dl (8.4-10.2); Carbon Dioxide 25 mmol/L (22-30); Chloride 96 mmol/L (98-107); Estimated Creatinine Clearance > 125 ml/min; Glucose 111 mg/dl (70-99); Sodium 130 mmol/L (135-145); eGFR > 60.00
[2024-05-03] MEDS: PROTONIX IV 80 MG IV (13:02)
[2024-05-03 13:33] LABS: ALT (SGPT) 70 U/L (0-50); AST (SGOT) 107 U/L (17-59); Albumin 3.1 g/dl (3.5-5.0); Alkaline Phosphatase 132 U/L (38-126); Blood Urea Nitrogen 18 mg/dl (9-20); Calcium 8.3 mg/dl (8.4-10.2); Carbon Dioxide 27 mmol/L (22-30); Chloride 97 mmol/L (98-107); Estimated Creatinine Clearance 114 ml/min; Glucose 108 mg/dl (70-99); Potassium 4.1 mmol/L (3.5-5.1); Sodium 132 mmol/L (135-145); Total Bilirubin 2.9 mg/dl (0.2-1.3); Total Protein 6.1 g/dl (6.3-8.2); eGFR > 60.00
--- NOTE | 2024-05-03 14:31 | CON.GI ---
Addendum entered and electronically signed by Omaira Zabala Do, MD 05/03/24 16:09:
I saw and examined the patient.
The INSOLE ROUNDER's note was reviewed and I agree with the note.
Comment: Samuel is a 53 yo M with h/o Elijah's disease s/p liver transplant in 2005 who presents with hematemesis. He of note was recently at 04/23/24 transferred to [place] for ascites paracentesis 6.5L and constipation. Vitals reviewed exam tall
NTTP, abd distension and no pain. mild scleral icterus. CTAP with cirrhosis and ascites no HCC
Impressions:
- Hematemesis
From esophageal varices and esophagitis seen on EGD 05/03/24
S/p banding x5
- Recurrent cirrhosis
MELD 3.0 = 15
- Recurrent ascites
- H/o OLT 2005 for Elijah's disease
- HTN
- Depression
- PTSD
Recommendations
- Protonix change to IV BID
- C/w octreotide to complete 72hrs
- C/w ceftriaxone to complete 7 day course
- Paracentesis x1 now with fluid studies
- Serial H/H
- Monitor stool output
- Anticipate some chest discomfort post EGD due to # of bands placed
- CLD
- Records request of liver bx results done at [facility] few weeks ago
Above d/w hospitalist. Will follow with you
Original Note:
Consultation
-
Date/Time Consultation Requested: 05/03/24 1400
Date/Time Consultation Performed: 05/03/24 1430
Requesting Provider: Timmy Arvizu MD
Performing Provider: VISHNU Washburn, Omaira Baires MD
Reason for Consultation: hematemesis
Medical History
Chief Complaint / HPI
Chief Complaint: vomiting blood
History of Present Illness:
Pt is a 53yo with hx Elijah's disease with liver transplant in 2005 at [facility] and [facility](follows with Dr. Hooker at [place] mostly via lab checks) , AVM with prior cranial surgery, prior moise, HTN, depression, PTSD, lipoma
resection with recent admission with new onset ascites with para completed for 6500ml with neg SBP, neg malignant cell, and SAAG c/w portal HTN. Pt was then transferred to [place] and completed liver biopsy and discharge. He now presents today for
hematemesis. Pt admits to vomiting 5 times large volume up to 2 spaghetti jars of red blood from 7 PM 05/02 til 8 aM 05/03. He called EMS and presents to ER for evaluation. On admission hbg stable 13.5 with prior 14 with normal BUN. INR, platelet
normal with low albumin at 3.
At this time patient also admits to GERD with some abdominal bloating with ascites and has had brown stools. He denies dysphagia, diarrhea, constipation or black stools. Last EGD and ? colon prior to 2005 transplant. No issue with confusion
or sleepiness prior to admission.
Past Medical History
Past Medical History: HTN, Hypothyroidism, Psychiatric (anxiety/depression) and Other (Elijah's disease s/p liver transplant 2006 on chronic suppressive therapy, right neck lipoma with excision, RLQ abdominal wall lipoma resection, DDD, frontal
AVM's, PTSD, inguinal hernia per CT)
Past Surgical History: Brain (AVM with portionof skill removed and plate placed), Cholecystectomy and Other (liver transplant 2005, adrenalectomy per CT)
Social History
Tobacco: Non-Smoker
Alcohol: None
Drug: Marijuana
Living: Alone
Employment: Public Assistance
Family History
Family History: Other (sister with hx Elijah's disease without symptoms )
Allergies / Home Medications
Allergy/AdvReac Type Severity Reaction Status Date / Time
No Known Allergies Allergy Verified 05/03/24 11:59
�Medication �Instructions �Recorded
benazepril 10 mg tablet (Lotensin) 10 mg PO DAILY Blood Pressure 02/27/20
escitalopram oxalate 10 mg tablet 10 mg PO HS Mental Health/Anxiety 02/27/20
mirtazapine 15 mg tablet 15 mg PO HS Mental Health/Anxiety 02/27/20
mycophenolate mofetil 500 mg tablet 500 mg PO BID Liver Issues 02/27/20
tacrolimus 1 mg capsule, 1 mg PO Q12H Liver Issues 04/22/24
immediate-release
Review of Systems
-
History Source: Patient
Constitutional: Reports Weight Gain
EENT: Reports No Symptoms
Respiratory: Reports No Symptoms
Cardiac: Reports No Symptoms
Abdomen/GI: Reports Abdominal Pain, Nausea and Vomiting (with hematemesis )
: Reports No Symptoms
Musculoskeletal: Reports No Symptoms
Skin: Reports No Symptoms
Neurological: Reports Weakness
Endocrine: Reports No Symptoms
Hematologic/Lymphatic: Reports No Symptoms
Vital Signs
Temp Pulse Resp BP Pulse Ox
98.0 F 57 16 123/94 97
05/03/24 11:59 05/03/24 13:00 05/03/24 13:09 05/03/24 12:16 05/03/24 14:00
Physical Exam
Exam
General: Well Developed, Well Nourished and No Apparent Distress
HEENT: Normocephalic and Other (jaundice )
Respiratory: Clear
Cardiac: Other (bradicardia )
GI: Soft, Tender (minimal ) and Distended (mild )
Musculoskeletal: No Clubbing and No Cyanosis
Skin: Warm and Dry
Neuro: Awake, Alert and AO x 3
Psych: Calm
Results
WBC 7.2 10^3/uL (4.8-10.8) 05/03/24 12:09
Hgb 13.5 g/dL (13.0-18.0) 05/03/24 12:09
Hct 38.8 % (39.0-52.0) L 05/03/24 12:09
MCV 91.7 fL (80.0-94.0) 05/03/24 12:09
Plt Count 171 10^3/uL (130-400) 05/03/24 12:09
Absolute Neuts (auto) 4.5 10^3/uL (1.4-6.5) 05/03/24 12:09
PT 14.8 Sec (11.4-14.6) H 05/03/24 12:09
INR 1.13 05/03/24 12:09
Sodium 132 mmol/L (135-145) L 05/03/24 13:01
Potassium 4.1 mmol/L (3.5-5.1) 05/03/24 13:01
Chloride 97 mmol/L (98-107) L 05/03/24 13:01
Carbon Dioxide 27 mmol/L (22-30) 05/03/24 13:01
BUN 18 mg/dl (9-20) 05/03/24 13:01
Creatinine 1.0 mg/dL (0.7-1.3) 05/03/24 13:01
Calcium 8.3 mg/dl (8.4-10.2) L 05/03/24 13:01
Total Bilirubin 2.9 mg/dl (0.2-1.3) H 05/03/24 13:01
AST 107 U/L (17-59) H 05/03/24 13:01
ALT 70 U/L (0-50) H 05/03/24 13:01
Alkaline Phosphatase 132 U/L (38-126) H 05/03/24 13:01
Diagnostic Image Results:
04/22/24 CT Abd/Pel (IV only)-DH only
1. Hepatic cirrhosis. Portal hypertension changes.
2. Large volume of abdominopelvic ascites.
Prior GI Procedures:
EGD: last 2005 prior to transplant
Colonoscopy: last ? prior to transplant
Assessment / Plan
-
Pt is a 53yo with hx Elijah's disease with liver transplant in 2005 at [facility] and [facility](follows with Dr. Hooker at [place] mostly via lab checks) , AVM with prior cranial surgery, prior mosie, HTN, depression, PTSD, lipoma
resection with recent admission with new onset ascites with para completed for 6500ml with neg SBP, neg malignant cell, and SAAG c/w portal HTN. Pt was then transferred to [place] and completed liver biopsy and discharge. He now presents today for
hematemesis. Pt admits to vomiting 5 times large volume up to 2 spaghetti jars of red blood from 7 PM 05/02 til 8 aM 05/03. He called EMS and presents to ER for evaluation. On admission hbg stable 13.5 with prior 14 with normal BUN. INR, platelet
normal with low albumin at 3.
-hematemesis
-recent new onset ascites in March
-CT with changes of cirrhosis/portal HTN
-hx Elijah's disease with prior liver transplant in [place] in 2005
-hyponatremia
-hypoalbuminemia
other med problems:
-AVM with prior cranial surgery
-HTN
-depression
-PTSD
-lipoma resection
-CT with adrenalectomy
-CT with inguinal hernia
PLAN:
Pt with hx Elijah's with liver transplant 2005 with now decompensation with ascites and now hematemesis with concern for EV bleeding, esophagitis, MW tear, PUD vs other
etiology of decompensation unclear- recent liver biopsy completed at [place] per patient
plan for EGD today to eval for EV bleeding
NPO
cont PPI and octreotide gtt
trend hbg and stool record
transfuse less than 7- blood consent obtained
add Ceftriaxone 1 gram now then daily with GI bleeding
await liver biopsy completed at [place]-- will request records
cont immunosuppression medications
hold Lasix and Aldactone for today t/c resume in AM
pt was on coreg 6.25mg BID prior to admission
will follow
reviewed with Dr. Jacobson for admission
-
-
Thank you for consultation and allowing me to participate in the patient's care. Please call the chief environmental commitment officer GI physician during the after hours with any questions or concerns.
[2024-05-03] MEDS: SANDOSTATIN 50 MCG IV (14:55)
[2024-05-03] MEDS: PROTONIX 100 IV (14:56)
[2024-05-03] MEDS: SANDOSTATIN 500.6 MCG IV (14:56)
[2024-05-03] MEDS: ROCEPHIN 1000 MG IV (15:04)
[2024-05-03] MEDS: STERILE WATER FOR INJECTION 10 ML IV (15:04)
--- NOTE | 2024-05-03 15:12 | HPS.HSE ---
Family Physician
-
Family Physician: Darlene Anthony MD
Chief Complaint
-
Vomiting blood
History of Present Illness
HPI
53M complex liver HX , liver transplant 19 years ago secondary to Elijah's disease, recently admitted at [facility] secondary to decompensating liver cirrhosis and ascites, seen at presents to ED:
- multiple episodes of bloody vomiting episodes, which patient describes as 'mouthful'.
- reports having had multiple nonbloody bowel movements
- Hemodynamically stabe
- stable Hgb
Of note: Patient states that he is currently being evaluated for potential second liver transplant.
ROS:
Denies abdominal pain.
Denies fever.
Denies coughing.
Denies dizziness.
Denies weakness.
Denies shortness of breath.
Medical History
Past Medical History
Past Medical History: Reports HTN
Additional Past Medical History:
Elijah disease status post liver transplantation
Past Surgical History: Reports Other (Liver transplantation 2005)
Additional Past Surgical History:
Liver Tx
AVM s/p craniectomy and plate placed
Social History
Tobacco: Non-smoker
Alcohol: Occasional
Drug: Marijuana
Personal: Single
Living: Alone
Family History
Family History: Not pertinent
Allergies / Home Medications
Allergies reflects when Allergies were last updated in [facility].
Home Medications with original date entered in [facility]
Allergy/Medication List:
Allergies
Allergy/AdvReac Type Severity Reaction Status Date / Time
No Known Allergies Allergy Verified 04/22/24 09:51
Home Medications
benazepril 10 mg tablet (Lotensin) 10 mg PO DAILY 02/27/20
cannabidiol 100 mg/mL oral solution (Epidiolex) 1 unit inhalation PRN PRN anxiety, depression 02/27/20
escitalopram oxalate 10 mg tablet 10 mg PO HS 02/27/20
mirtazapine 15 mg tablet 15 mg PO HS 02/27/20
mycophenolate mofetil 500 mg tablet 1,000 mg PO BID 02/27/20
Review of Systems
-
Constitutional: Reports No Symptoms
EENT: Reports No Symptoms
Respiratory: Reports No Symptoms
Cardiac: Reports No Symptoms
Abdomen/GI: Reports Vomiting (blood )
: Reports No Symptoms
Skin: Reports No Symptoms
Neurological: Reports No Symptoms
Endocrine: Reports No Symptoms
Hematologic/Lymphatic: Reports No Symptoms
Psych: Reports No Symptoms
Physical Exam
Vital Signs
Vital Signs
Temp Pulse Resp BP Pulse Ox
98.0 F 45 13 146/103 97
05/03/24 11:59 05/03/24 15:00 05/03/24 15:00 05/03/24 15:00 05/03/24 15:00
Physical Exam
General: Well Developed, Comfortable and Conversant
HEENT: NormoCephalic, Anicteric, Moist mucous membranes and Atraumatic
Respiratory: Clear
Cardiac: S1/S2 and Regular Rhythm
Breast: Deferred by me
GI: Tender and Distended
Rectal: Deferred by Provider
Genito-urinary: Deferred by me
Musculoskeletal: No Clubbing and No Cyanosis
Skin: Warm
Neuro: AO x 3, Nonfocal/grossly intact and Other (no asterixis)
Hematologic/Lymphatic: No Lymphadenopathy
Psych: Calm
Laboratory Results
-
05/03/24 12:09
05/03/24 13:01
Laboratory Results
PT 14.8 Sec (11.4-14.6) H 05/03/24 12:09
INR 1.13 05/03/24 12:09
Total Bilirubin 2.9 mg/dl (0.2-1.3) H 05/03/24 13:01
AST 107 U/L (17-59) H 05/03/24 13:01
ALT 70 U/L (0-50) H 05/03/24 13:01
Alkaline Phosphatase 132 U/L (38-126) H 05/03/24 13:01
Data Reviewed
-
CT Scan: Report Reviewed by me
Medical Tests (Nuc Med, Echo, EKG etc): Report Reviewed by me
Lab Data: Labs Reviewed by me
Old Records: Reviewed
Impression/Plan
-
Laboratory Tests
04/23/24 05/03/24 05/03/24
07:50 12:09 13:01
WBC 7.2
Hgb 14.0 13.5
Plt Count 196 171
INR 1.13
Sodium 132 L
Potassium 4.1
Chloride 97 L
Creatinine 1.0
eGFR > 60.00
Calcium 8.3 L
Total Bilirubin 2.9 H
AST 107 H
ALT 70 H
Alkaline Phosphatase 132 H
Albumin 3.1 L
Diagnostic Image Results:
04/22/24 CT Abd/Pel (IV only)-DH only
1. Hepatic cirrhosis. Portal hypertension changes.
2. Large volume of abdominopelvic ascites.
ASSESSMENT & PLAN
Immunocompromised host
HX Elijah's disease status post OLT in 2005 in [facility]
Currently on immunosuppression with tacrolimus and mycophenolate mofetil
- cont. all immunosuppression Rx
Acute multiple episodes of hematemesis DDx: Evaluation for for Variceal bleeding
Hemodynamically stable
Hgb stable
- NPO and IVF
- SBP Prophylaxis: IV CFTZ 1gm daily now and daily x 7 doses
- Agree with PPI gtt & Octreotide gtt
- Hold Lasix and Aldactone
- T & S, Blood consented
- Trend Hgb
- For urgent EGD
- Urgent GI consulted
Recent admission to [facility] due to decompensating liver cirrhosis and new onset of ascites
04/22/24 CT with changes of cirrhosis/portal HTN
HX Elijah's disease with prior liver transplant in [place] in 2005
Chr hyponatremia of cirrhosis
Mild hypoalbuminemia
Of note: Hepatitis serologies negative and alpha-fetoprotein negative
- Pending eval for second liver TP at tertiary center
Other med problems:stable
AVM with prior cranial surgery
HTN
Depression
PTSD
-lipoma resection
CT with adrenalectomy
CT with inguinal hernia
DVT Px: SCD
Full code
IMU
--- NOTE | 2024-05-03 18:23 | PTCARENOTE ---
Pt arrived to 2S in bed. Octreotide and Protonix gtt infusing per order. Skin jaundiced, Abdomen round and full. Pt informed of CLD no red liquids, verbalized understanding. Bed locked and in the lowest position, safety maintained. Oriented to room
and call licea.
[2024-05-03 18:24] LABS: Hematocrit 33.3 % (39.0-52.0); Hemoglobin 11.2 g/dL (13.0-18.0)
[2024-05-03] MEDS: COREG 6.25 MG PO (19:38)
[2024-05-03] MEDS: MYLICON 80 MG PO (19:39)
[2024-05-03] MEDS: PROGRAF 0.5 MG PO (19:39)
[2024-05-03] MEDS: MAG-TAB SR 84 MG PO (19:39)
[2024-05-03] MEDS: REMERON 15 MG PO (21:47)
[2024-05-03] MEDS: LEXAPRO 10 MG PO (21:47)
[2024-05-04] VITALS (11 sets, daily range): BP systolic 56–169; BP diastolic 20–112; PULSE 51–76
[2024-05-04 00:36] LABS: Hematocrit 37.7 % (39.0-52.0); Hemoglobin 13.3 g/dL (13.0-18.0)
[2024-05-04] MEDS: SANDOSTATIN 500.6 MCG IV ×2 (03:02→14:46)
[2024-05-04 05:41] LABS: Ammonia < 9 umol/L (9-30)
[2024-05-04 06:48] LABS: Hemoglobin 13.3 g/dL (13.0-18.0); Mean Corp Hgb Conc. 34.1 g/dL (33.0-37.0); Mean Corpuscular Hgb 32.3 pg (27.0-31.0); Mean Corpuscular Volume 94.7 fL (80.0-94.0); Platelet Count 143 10^3/uL (130-400); Red Blood Cell Count 4.12 10^6/uL (4.70-6.10); Red Cell Dist. Width 15.3 % (11.5-14.5); White Blood Cell Count 7.3 10^3/uL (4.8-10.8)
[2024-05-04 07:14] LABS: ALT (SGPT) 60 U/L (0-50); AST (SGOT) 89 U/L (17-59); Alkaline Phosphatase 103 U/L (38-126); Blood Urea Nitrogen 17 mg/dl (9-20); Carbon Dioxide 26 mmol/L (22-30); Chloride 94 mmol/L (98-107); Estimated Creatinine Clearance 114 ml/min; Glucose 180 mg/dl (70-99); Sodium 128 mmol/L (135-145); Total Bilirubin 2.9 mg/dl (0.2-1.3); Total Protein 6.1 g/dl (6.3-8.2); eGFR > 60.00
[2024-05-04] MEDS: MAG-TAB SR 84 MG PO ×2 (08:19→20:34)
[2024-05-04] MEDS: MYLICON 80 MG PO ×2 (08:19→20:34)
[2024-05-04] MEDS: PROTONIX IV 40 MG IV ×2 (08:20→20:34)
[2024-05-04] MEDS: COREG PO (08:20)
[2024-05-04] MEDS: PROGRAF 0.5 MG PO ×2 (08:20→20:34)
[2024-05-04] MEDS: NSS (PRESERVATIVE FREE) 10 ML IV ×2 (08:21→20:34)
--- NOTE | 2024-05-04 11:54 | W.PN.GI.CBS2 ---
Today's Communication / Plan
-
Adv to regular diet
Await paracentesis, IR consulted 05/03
Will follow with you
Assessment / Plan
-
Samuel is a 53 yo M with h/o Elijah's disease s/p liver transplant in 2005 who presents with hematemesis. He of note was recently at 04/23/24 transferred to [place] for ascites paracentesis 6.5L and constipation. CTAP with cirrhosis and ascites no
HCC
Impressions:
- Hematemesis
From esophageal varices and esophagitis seen on EGD 05/03/24
S/p banding x5
- Recurrent cirrhosis
MELD 3.0 = 15 (05/03/2024)
- Recurrent ascites
- H/o OLT 2005 for Elijah's disease
- HTN
- Depression
- PTSD
- AVM with prior cranial surgery
- lipoma resection
- CT with adrenalectomy
- CT with inguinal hernia
Recommendations
- C/w Protonix IV BID
- C/w octreotide to complete 72hrs
- C/w abxto complete 7 day course
- Recommend paracentesis. IR consulted 05/03/24
- Serial H/H
- Monitor stool output
- Adv to regular diet
- Records request of liver bx results done at [facility] few weeks ago. C/w prograf.
- Can resume coreg outpatient basis for 2ndary variceal ppx. Will also need OP EGD in 4 wks time for FU on varices
Will follow with you.
Subjective
Subjective
Date of Service: May 04, 2024
No further hematemesis. No BM since admission. Tolerated CLD last night. Denies CP or abd pain
Objective
Data Reviewed
Laboratory Data:
Laboratory Results
05/04/24 05:19
05/04/24 05:19
Laboratory Results
PT 14.8 Sec (11.4-14.6) H 05/03/24 12:09
INR 1.13 05/03/24 12:09
Total Bilirubin 2.9 mg/dl (0.2-1.3) H 05/04/24 05:19
AST 89 U/L (17-59) H 05/04/24 05:19
ALT 60 U/L (0-50) H 05/04/24 05:19
Alkaline Phosphatase 103 U/L (38-126) 05/04/24 05:19
Vital Signs and I&O:
Vital Signs
Temp Pulse Resp BP Pulse Ox
97.4 F 60 16 145/97 97
05/04/24 11:44 05/04/24 11:44 05/04/24 11:44 05/04/24 11:44 05/04/24 11:44
I&O
05/03/24 05/04/24 05/05/24
06:59 06:59 06:59
Intake Total 1800 / 1800
Balance 1800 / 1800
Physical Exam
Physical Exam
GEN: No acute distress, conversant, tall body habitus
HEENT: anicteric, extraocular movements intact, clear oropharynx without exudates
GI: soft, obese-distended, not tender to palpation, normal active bowel sounds, no hepatosplenomegaly
EXT: warm, well perfused, trace edema bilaterally
NEURO: AAOx3, non-focal
--- NOTE | 2024-05-04 13:07 | W.PN.HOSP.TC ---
Addendum entered and electronically signed by Nydia Licona MD 05/04/24 16:05:
I saw and evaluated the patient independently. I reviewed the resident�s note and agree with findings and plan as documented by Dr. Butt.
GENERAL: well developed, well nourished, male in no apparent distress
HEENT: NC/AT
HEART: regular rate and rhythm, +S1, +S2
LUNGS : clear to auscultation bilaterally
ABDOM: soft, nontender, distended with positive fluid wave, + bowel sounds
EXT: no cyanosis, clubbing, or edema
NEUROLOGIC: grossly intact
Hematemesis secondary to esophageal varices--pt with h/o of liver transplant for Elijah's disease--apprec GI--varices banded--cont rocephin--advance diet--HGB stable--cont protonix/octreotide
Recurrent ascites/cirrhosis--h/o of liver transplant for Elijah's disease--now with ascites--apprec IR for paracentesis--likely will need albumin infusion post tap--follow up at [facility] for ongoing transplant care--cont mycophenolate and tacrolimus
Hyponatremia--possibly due to volume overload from cirrhosis and IVF---sodium 128, patient tolerating regular diet,continue to monitor--if no improvement, consult renal
Essential hypertension-cont lasix, coreg as able
Depression-continue escitalopram, mirtazapine
PTSD--cont mirtazapine
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
DVT phoph
code status -- FULL CODE
Original Note:
Today's Communication/Plan
-
Paracentesis
Monitor sodium levels
Observe for 24 hours
Assessment / Plan
Assessment / Plan
Impression
Samuel is a 53 yo M with h/o Eliajh's disease s/p liver transplant in 2005 who presents with hematemesis. He of note was recently at 04/23/24 transferred to [place] for ascites paracentesis 6.5L and constipation. He had an endoscopy done on May
2023 for the hematemesis, 5 bands placed, patient had no further episodes of hematemesis post endoscopy. He feels fine but has some discomfort in his abdomen and has had no bowel movement for last 24 hours.
Assessment/plan
# Hematemesis secondary to esophageal varices
Patient presented with multiple episodes of multiple hematemesis
Gastroenterology consult appreciated-5 bands placed for grade 3 esophageal varices
No further episodes of hematemesis or melena
Patient had no bowel movement in last 24 hours
Hemoglobin stable at 13
Patient started on regular diet, tolerating well
Observe for next 24 hours
Continue Protonix, octreotide and antibiotic
GI recommended paracentesis, IR consulted
Monitor stool output, serial H&H
# Recurrent ascites/cirrhosis
Patient had a liver transplant done in 2005 secondary to Elijah's disease
According to the patient, the liver was normal 66-year-old, patient developing liver complications including ascites and versus
MELD 3.0 is equal to 15 which is low for liver transplant
Patient will follow-up on outpatient basis with you plan for liver transplant discussion
Patient will have an acetic tap by IR as per GI recommendations
#Hyponatremia-sodium 128, patient tolerating regular diet,continue to monitor
# Other medical conditions
-Essential hypertension-
- Depression-continue escitalopram, mirtazapine
-History of liver transplant-continue mycophenolate and tacrolimus
- PTSD
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
-
Anticipated Discharge: 24 - 48 hours
Subjective/Interval History
-
Date of Service: May 04, 2024
Patient had no further episodes of hematemesis post endoscopic banding. He feels fine, GI started him on regular diet which he is tolerating okay
Objective Data
-
Labs:
Laboratory Results
05/04/24
05:19
WBC 7.3
Hgb 13.3
Hct 39.0
Plt Count 143
Sodium 128 L
Potassium 5.0
Chloride 94 L
Carbon Dioxide 26
BUN 17
Creatinine 1.0
Glucose 180 H
Calcium 8.0 L
Total Bilirubin 2.9 H
AST 89 H
ALT 60 H
Alkaline Phosphatase 103
Vital Signs:
Vital Signs
Temp Pulse Resp BP Pulse Ox
97.4 F 60 16 145/97 97
05/04/24 11:44 05/04/24 11:44 05/04/24 11:44 05/04/24 11:44 05/04/24 11:44
I&O
05/03/24 05/04/24 05/05/24
06:59 06:59 06:59
Intake Total 1800 / 1800
Balance 1800 / 1800
Review of Systems
-
All other systems: Reviewed and negative
Physical Exam
-
General: Well Developed, Well Nourished and No Apparent Distress
HEENT: Normocephalic, Atraumatic and Moist Mucous Membranes
Respiratory: Clear to Auscultation
Cardiac: Regular Rhythm, S1/S2 and Tachycardic
GI: Soft, Tender (Mildly tender) and Distended (Mildly distended)
Musculoskeletal: No Clubbing, No Cyanosis and No Edema
Skin: Warm and Dry
Neuro: Awake, Oriented and No Motor Deficits
Psych: Calm
--- NOTE | 2024-05-04 15:01 | CM ---
Adm dx - GI Bleed. PMH - liver transplant, AVM with prior cranial sx, Elijah's Disease, depression, PTSD
Met with pt at bedside
Pt reports he lives alone in a studio apartment; 1 step to enter
Independent, currently on SSI, does not drive
DME - none
SNF/HH - denies past hx
Has hx with [facility] - not current
Has ride at discharge
PCP - Dr Quinteros
Pharm - [facility]
Plan - anticipate home no needs when medically ready
[2024-05-04 15:28] LABS: Body Fluid Polymorphonuclear 16.4 %; Body Fluid WBC 165 /CUMM
[2024-05-04 15:29] LABS: Body Fluid Mononuclear 83.6 %
[2024-05-04] MEDS: ROCEPHIN 1000 MG IV (15:34)
[2024-05-04] MEDS: STERILE WATER FOR INJECTION 10 ML IV (15:34)
[2024-05-04] MEDS: FLUSH (NSS) 2 FLUSH IV (15:35)
[2024-05-04 15:45] LABS: Body Fluid Albumin < 1.0 g/dl; Body Fluid Protein < 2.0 g/dl
[2024-05-04 17:26] LABS: Body Fluid Second Tech CF
[2024-05-04] MEDS: FLEXBUMIN 100 IV (17:35)
[2024-05-04] MEDS: COREG 6.25 MG PO (20:33)
[2024-05-04] MEDS: LEXAPRO 10 MG PO (20:47)
[2024-05-04] MEDS: REMERON 15 MG PO (20:47)
[2024-05-05] VITALS (7 sets, daily range): BP systolic 124–135; BP diastolic 77–83
[2024-05-05] MEDS: SANDOSTATIN 500.6 MCG IV ×2 (02:53→14:01)
[2024-05-05 05:12] LABS: % Basophils 0.2 % (0-2); % Eosinophils 0.1 % (0-6); % Immature Granulocytes 0.3 % (0-0.5); % Lymphocytes 12.4 % (20.5-51.1); % Monocytes 10.4 % (1.7-9.3); % Neutrophils 76.6 % (42.2-75.2); Absolute Lymphocytes 1.6 10^3/uL (1.2-3.4); Absolute Monocytes 1.3 10^3/uL (0.1-0.6); Absolute Neutrophils 9.8 10^3/uL (1.4-6.5); Hemoglobin 12.4 g/dL (13.0-18.0); Mean Corp Hgb Conc. 35.4 g/dL (33.0-37.0); Mean Corpuscular Hgb 32.8 pg (27.0-31.0); Mean Corpuscular Volume 92.6 fL (80.0-94.0); Mean Platelet Volume 10.8 fL (7.4-10.4); Nucleated Red Blood Cells % 0 % (-); Platelet Count 129 10^3/uL (130-400); Red Blood Cell Count 3.78 10^6/uL (4.70-6.10); Red Cell Dist. Width 15.1 % (11.5-14.5); White Blood Cell Count 12.7 10^3/uL (4.8-10.8)
[2024-05-05 05:37] LABS: ALT (SGPT) 55 U/L (0-50); AST (SGOT) 68 U/L (17-59); Alkaline Phosphatase 101 U/L (38-126); Blood Urea Nitrogen 17 mg/dl (9-20); Calcium 7.9 mg/dl (8.4-10.2); Carbon Dioxide 26 mmol/L (22-30); Chloride 98 mmol/L (98-107); Estimated Creatinine Clearance > 125 ml/min; Glucose 106 mg/dl (70-99); Magnesium 1.7 mg/dl (1.6-2.3); Potassium 4.4 mmol/L (3.5-5.1); Sodium 132 mmol/L (135-145); Total Bilirubin 2.3 mg/dl (0.2-1.3); Total Protein 5.9 g/dl (6.3-8.2); eGFR > 60.00
--- NOTE | 2024-05-05 07:06 | W.PN.HOSP.TC ---
Addendum entered and electronically signed by Nydia Licona MD 05/05/24 15:23:
I saw and evaluated the patient independently. I reviewed the resident�s note and agree with findings and plan as documented by Dr. Butt.
GENERAL: well developed, well nourished, male in no apparent distress
HEENT: NC/AT
HEART: regular rate and rhythm, +S1, +S2
LUNGS : clear to auscultation bilaterally
ABDOM: soft, nontender, nondistended, + bowel sounds
EXT: no cyanosis, clubbing, or edema
NEUROLOGIC: grossly intact
Hematemesis secondary to esophageal varices--pt with h/o of liver transplant for Elijah's disease--apprec GI--varices banded-- rocephin changed to oral ABX per GI--want to cont octreotide until 05/06/24 at 2PM--tolerating diet--HGB stable--cont
protonix/octreotide until 2PM tomorrow
Recurrent ascites/cirrhosis--h/o of liver transplant for Elijah's disease--now with ascites--apprec IR for paracentesis, 4L removed with albumin supplementation--follow up at [facility] for ongoing transplant care--cont mycophenolate and tacrolimus
Hyponatremia--improved---possibly due to volume overload from cirrhosis and IVF---sodium 132, patient tolerating regular diet
Essential hypertension-cont lasix, coreg as able
Depression-continue escitalopram, mirtazapine
PTSD--cont mirtazapine
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
DVT phoph
code status -- FULL CODE
anticipate d/c tomorrow
Original Note:
Today's Communication/Plan
-
Complete octreotide infusion
Plan discharge tomorrow
Assessment / Plan
Assessment / Plan
Impression
Samuel is a 53 yo M with h/o Elijah's disease s/p liver transplant in 2005 who presents with hematemesis. He of note was recently at 04/23/24 transferred to [facility] for ascites paracentesis 6.5L and constipation. He had an endoscopy done on May
2023 for the hematemesis, 5 bands placed, patient had no further episodes of hematemesis post endoscopy. Patient has been tolerating regular diet well. No further episodes of hematemesis and normal bowels.
Assessment/plan
# Hematemesis secondary to esophageal varices
Patient presented with multiple episodes of multiple hematemesis
Gastroenterology consult appreciated-5 bands placed for grade 3 esophageal varices
No further episodes of hematemesis or melena
Hemoglobin stable at 12-13
Patient started on regular diet, tolerating well
Observe for next 24 hours
Continue Protonix, octreotide and antibiotic
Paracentesis done, fluid WBC count 165, polymorphonuclear cells 16.4, SAG ratio greater than 1, no SBP, portal hypertensive ascites
Hemoglobin stable.
GI consult appreciated-as per recommendations, patient needs to complete octreotide infusion for 72 hours,Continue Protonix twice daily, transitioned ceftriaxone to Cipro to complete 7-day course with last dose on May 10, 2024
Resume nonselective beta-jose on outpatient basis, Protonix for 8 weeks, Lasix daily, Aldactone daily, Cipro to complete 7-day course
# Recurrent ascites/cirrhosis
Patient had a liver transplant done in 2005 secondary to Elijah's disease
According to the patient, the liver was normal 66-year-old, patient developing liver complications including ascites and versus
MELD 3.0 is equal to 15 which is low for liver transplant
Patient will follow-up on outpatient basis with [facility] for liver transplant discussion
Patient had ascitic tap done-draining 4.2 L of fluid -portal hypertension/no SBP-albumin 25 g replaced
#Hyponatremia-sodium improving, could be secondary to volume overload, ascitic tap done and patient is currently tolerating regular diet, continue to monitor
# Other medical conditions
-Essential hypertension-continue Lasix, Coreg as able
- Depression-continue escitalopram, mirtazapine
-History of liver transplant-continue mycophenolate and tacrolimus
- PTSD-continue mirtazapine
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
CODE STATUS-full code
DVT prophylaxis-sequential compression devices
-
Anticipated Discharge: Within 24 hours
Subjective/Interval History
-
Date of Service: May 05, 2024
No active issues,Patient tolerating regular diet well with no further episodes of hematemesis or blood in stools
Objective Data
-
Labs:
Laboratory Results
05/05/24
04:14
WBC 12.7 H
Hgb 12.4 L
Hct 35.0 L
Plt Count 129 L
Sodium 132 L
Potassium 4.4
Chloride 98
Carbon Dioxide 26
BUN 17
Creatinine 0.9
Glucose 106 H
Calcium 7.9 L
Total Bilirubin 2.3 H
AST 68 H
ALT 55 H
Alkaline Phosphatase 101
Vital Signs:
Vital Signs
Temp Pulse Resp BP Pulse Ox
97.7 F 53 16 128/81 96
05/05/24 03:09 05/05/24 03:09 05/05/24 03:09 05/05/24 03:09 05/05/24 03:09
I&O
05/04/24 05/05/24 05/06/24
06:59 06:59 06:59
Intake Total 1800 / 1800 4560 / 4560
Output Total 4870 / 4870
Balance 1800 / 1800 -310 / -310
Review of Systems
-
All other systems: Reviewed and negative
Physical Exam
-
General: Well Developed, Well Nourished and No Apparent Distress
HEENT: Normocephalic and Atraumatic
Respiratory: Clear to Auscultation
Cardiac: Regular Rhythm, S1/S2 and Bradycardic
GI: Soft, Nontender, Normal Bowel Sounds and Distended
Musculoskeletal: No Clubbing, No Cyanosis and No Edema
Neuro: Awake, Oriented and Nonfocal/Grossly Intact
Psych: Calm
[2024-05-05] MEDS: COREG PO ×2 (08:00→21:09)
[2024-05-05] MEDS: PROTONIX IV 40 MG IV ×2 (08:01→21:13)
[2024-05-05] MEDS: MYLICON 80 MG PO ×2 (08:01→21:15)
[2024-05-05] MEDS: PROGRAF 0.5 MG PO ×2 (08:01→21:16)
[2024-05-05] MEDS: MAG-TAB SR 84 MG PO ×2 (08:01→21:15)
[2024-05-05] MEDS: NSS (PRESERVATIVE FREE) 10 ML IV ×2 (08:02→21:12)
[2024-05-05] MEDS: ALDACTONE 100 MG PO (09:14)
[2024-05-05] MEDS: LASIX 40 MG PO (09:16)
[2024-05-05] MEDS: DUPHALAC/CHRONULAC 20 GRAMS PO ×2 (09:18→21:14)
--- NOTE | 2024-05-05 10:25 | W.PN.GI.CBS2 ---
Today's Communication / Plan
-
Changed abx to oral
Resumed diuretics
Anticipate hosp d/c tomorrow from [facility] with the above rx
He already has GI FU with Dr Julee Hooker at [facility]. GI will sign off please call for ?
Assessment / Plan
-
Samuel is a 53 yo M with h/o Elijah's disease s/p liver transplant in 2005 who presents with hematemesis. He of note was recently at 04/23/24 transferred to [facility] for ascites paracentesis 6.5L and constipation. CTAP with cirrhosis and ascites no
HCC
Impressions:
- Hematemesis
From esophageal varices and esophagitis seen on EGD 05/03/24
S/p banding x5
- Recurrent cirrhosis
MELD 3.0 = 15 (05/03/2024)
- Recurrent ascites
- H/o OLT 2005 for Elijah's disease
- HTN
- Depression
- PTSD
- AVM with prior cranial surgery
- lipoma resection
- CT with adrenalectomy
- CT with inguinal hernia
Recommendations
- C/w Protonix IV BID
- C/w octreotide to complete 72hrs (anticipate 1400 on 05/06/24)
- Transition CTX to cipro to complete 7 day course (last dose 05/10/24)
- Paracentesis done 05/04 neg for SBP. Resumed diuretics lasix and aldactone today
- Tolerating regular diet
- Records request of liver bx results done at [facility] few weeks ago. C/w prograf.
- Hold on nonselective Bblocker can be resumed OP basis. Will also need OP EGD in 4 wks time for FU on varices.
Anticipate from [facility] d/c Monday after completion of octreotide drip. His case was d/w with [facility]ology and no in hospital transfer given low MELD. He has FU with Dr David ANDERSON at [facility] on 05/13
He will need rx for protonix 40mg BID x8 wks, lasix 40mg daily, Aldactone 100mg daily and cipro to complete 7 day course
GI will sign off please call for questions
Subjective
Subjective
Date of Service: May 05, 2024
Feels well. Eating most of meals without further nausea vomiting. No BMs. Son to come in today to watch [employer] game with him
Objective
Data Reviewed
Laboratory Data:
Laboratory Results
05/05/24 04:14
05/05/24 04:14
Laboratory Results
PT 14.8 Sec (11.4-14.6) H 05/03/24 12:09
INR 1.13 05/03/24 12:09
Magnesium 1.7 mg/dl (1.6-2.3) 05/05/24 04:14
Total Bilirubin 2.3 mg/dl (0.2-1.3) H 05/05/24 04:14
AST 68 U/L (17-59) H 05/05/24 04:14
ALT 55 U/L (0-50) H 05/05/24 04:14
Alkaline Phosphatase 101 U/L (38-126) 05/05/24 04:14
Vital Signs and I&O:
Vital Signs
Temp Pulse Resp BP Pulse Ox
97.6 F 50 16 135/93 95
05/05/24 07:05 05/05/24 09:16 05/05/24 07:05 05/05/24 09:16 05/05/24 07:05
I&O
05/04/24 05/05/24 05/06/24
06:59 06:59 06:59
Intake Total 1800 / 1800 4560 / 4560
Output Total 4870 / 4870
Balance 1800 / 1800 -310 / -310
Physical Exam
Physical Exam
GEN: No acute distress, conversant, pleasant tall body habitus
HEENT: anicteric, extraocular movements intact, clear oropharynx without exudates
GI: soft, mildly-distended, not tender to palpation, normal active bowel sounds, no hepatosplenomegaly
EXT: warm, well perfused, trace edema bilaterally
NEURO: AAOx3, non-focal
[2024-05-05] MEDS: CIPRO 500 MG PO (11:42)
[2024-05-05] MEDS: STERILE WATER FOR INJECTION IV (16:48)
[2024-05-05] MEDS: REMERON 15 MG PO (21:15)
[2024-05-05] MEDS: LEXAPRO 10 MG PO (21:15)
[2024-05-06] MEDS: SANDOSTATIN 500.6 MCG IV ×2 (02:06→13:52)
[2024-05-06 03:00] VITALS: BP 144/85
[2024-05-06 06:13] VITALS: BMI 22.1
[2024-05-06 06:55] VITALS: BP 132/88
[2024-05-06 08:16] LABS: % Eosinophils 5.2 % (0-6); % Immature Granulocytes 0.3 % (0-0.5); % Monocytes 13.4 % (1.7-9.3); % Neutrophils 53.1 % (42.2-75.2); Absolute Basophils 0.1 10^3/uL (0-0.2); Absolute Eosinophils 0.5 10^3/uL (0-0.7); Absolute Lymphocytes 2.5 10^3/uL (1.2-3.4); Absolute Monocytes 1.2 10^3/uL (0.1-0.6); Absolute Neutrophils 4.9 10^3/uL (1.4-6.5); Hematocrit 37.8 % (39.0-52.0); Hemoglobin 13.2 g/dL (13.0-18.0); Mean Corp Hgb Conc. 34.9 g/dL (33.0-37.0); Mean Corpuscular Hgb 32.4 pg (27.0-31.0); Mean Corpuscular Volume 92.6 fL (80.0-94.0); Mean Platelet Volume 10.9 fL (7.4-10.4); Nucleated Red Blood Cells % 0 % (-); Platelet Count 157 10^3/uL (130-400); Red Blood Cell Count 4.08 10^6/uL (4.70-6.10); Red Cell Dist. Width 14.9 % (11.5-14.5); White Blood Cell Count 9.2 10^3/uL (4.8-10.8)
[2024-05-06 08:42] LABS: ALT (SGPT) 64 U/L (0-50); AST (SGOT) 80 U/L (17-59); Albumin 2.9 g/dl (3.5-5.0); Alkaline Phosphatase 107 U/L (38-126); Blood Urea Nitrogen 15 mg/dl (9-20); Calcium 7.8 mg/dl (8.4-10.2); Carbon Dioxide 27 mmol/L (22-30); Chloride 96 mmol/L (98-107); Estimated Creatinine Clearance 109 ml/min; Glucose 88 mg/dl (70-99); Magnesium 1.4 mg/dl (1.6-2.3); Potassium 4.3 mmol/L (3.5-5.1); Sodium 131 mmol/L (135-145); Total Bilirubin 2.3 mg/dl (0.2-1.3); eGFR > 60.00
[2024-05-06] MEDS: MAG-TAB SR 84 MG PO (08:53)
[2024-05-06] MEDS: MYLICON 80 MG PO (08:53)
[2024-05-06] MEDS: LASIX 40 MG PO (08:53)
[2024-05-06] MEDS: PROGRAF 0.5 MG PO (08:53)
[2024-05-06] MEDS: DUPHALAC/CHRONULAC 20 GRAMS PO (08:53)
[2024-05-06] MEDS: CIPRO 500 MG PO (08:53)
[2024-05-06] MEDS: COREG PO (08:53)
[2024-05-06] MEDS: PROTONIX IV 40 MG IV (08:53)
[2024-05-06] MEDS: ALDACTONE 100 MG PO (08:53)
[2024-05-06] MEDS: NSS (PRESERVATIVE FREE) 10 ML IV (08:54)
[2024-05-06 11:00] VITALS: BP 128/82
--- NOTE | 2024-05-06 13:44 | W.PN.HOSP.TC ---
Addendum entered and electronically signed by Shira Dobson MD 05/06/24 18:31:
Total DC time 40 minutes
Addendum entered and electronically signed by Shira Dobson MD 05/06/24 16:28:
I personally performed a history and physical exam of the patient and discussed management with the resident. I reviewed the resident's note and agree with the documented findings and plan of care HPI/CC.
A/P:
# Hematemesis secondary to esophageal varices
s/p variceal banding
PPI drip/octreotide x72 hours
Rocephin changed to oral Cipro, cont for 7 days
tolerating diet
apprec GI
# Recurrent ascites 2/2 cirrhosis
# h/o liver transplant for Elijah's disease
s/p IR paracentesis, 4L removed with albumin supplementation
follow up at [facility] for ongoing transplant care
cont mycophenolate and tacrolimus
Lactulose added this admission to titrate bowel movement 2-3 times per day in setting of decompensated liver failure with cirrhosis.
# Hyponatremia, possibly due to volume overload from cirrhosis and IVF
sodium level 131 today
# Essential hypertension
cont lasix, coreg as able
# Depression
continue escitalopram, mirtazapine
# PTSD
cont mirtazapine
# AVM with prior cranial surgery likely due to Elijah's disease
DVT phoph
code status -- FULL CODE
Original Note:
Today's Communication/Plan
-
Complete octreotide infusion
Plan discharge
Assessment / Plan
Assessment / Plan
Impression
Samuel is a 53 yo M with h/o Elijah's disease s/p liver transplant in 2005 who presents with hematemesis. He of note was recently at 04/23/24 transferred to [facility] for ascites paracentesis 6.5L and constipation. He had an endoscopy done on May
2023 for the hematemesis, 5 bands placed, patient had no further episodes of hematemesis post endoscopy. Patient has been tolerating regular diet well. No further episodes of hematemesis.
Assessment/plan
# Hematemesis secondary to esophageal varices
Patient presented with multiple episodes of multiple hematemesis
Gastroenterology consult appreciated-5 bands placed for grade 3 esophageal varices
No further episodes of hematemesis or melena
Hemoglobin stable at 12-13
Patient started on regular diet, tolerating well
Complete 72 hours of octreotide infusion
Paracentesis done, fluid WBC count 165, polymorphonuclear cells 16.4, SAG ratio greater than 1, no SBP, portal hypertensive ascites
Hemoglobin stable.
GI consult appreciated-as per recommendations, patient needs to complete octreotide infusion for 72 hours,Continue Protonix twice daily, transitioned ceftriaxone to Cipro to complete 7-day course with last dose on May 10, 2024
Resume nonselective beta-jose on outpatient basis, Protonix for 8 weeks, Lasix daily, Aldactone daily, Cipro to complete 7-day course
# Constipation
Patient has had no bowel movement for the last 2 days, passing gas and has a lot of bloating
Patient had 2 bowel movements today with [place]
Add lactulose on discharge with tapering dose to achieve 2 bowel movements a day
# Recurrent ascites/cirrhosis
Patient had a liver transplant done in 2005 secondary to Elijah's disease
According to the patient, the liver was normal 66-year-old, patient developing liver complications including ascites and varices
MELD 3.0 is equal to 15 which is low for liver transplant
Patient will follow-up on outpatient basis with [facility] for liver transplant discussion
Patient had ascitic tap done-draining 4.2 L of fluid -portal hypertension/no SBP-albumin 25 g replaced
#Hyponatremia-sodium improving, could be secondary to volume overload, ascitic tap done and patient is currently tolerating regular diet, continue to monitor
# Other medical conditions
-Essential hypertension-continue Lasix, Coreg as able
- Depression-continue escitalopram, mirtazapine
-History of liver transplant-continue mycophenolate and tacrolimus
- PTSD-continue mirtazapine
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
CODE STATUS-full code
DVT prophylaxis-sequential compression devices
-
Anticipated Discharge: Today
Subjective/Interval History
-
Date of Service: May 06, 2024
Patient complains of bloating, no bowel movement in last 2 days
No hematemesis
Objective Data
-
Labs:
Laboratory Results
05/06/24
06:59
WBC 9.2
Hgb 13.2
Hct 37.8 L
Plt Count 157 D
Sodium 131 L
Potassium 4.3
Chloride 96 L
Carbon Dioxide 27
BUN 15
Creatinine 1.0
Glucose 88
Calcium 7.8 L
Total Bilirubin 2.3 H
AST 80 H
ALT 64 H
Alkaline Phosphatase 107
Vital Signs:
Vital Signs
Temp Pulse Resp BP Pulse Ox
97.7 F 58 16 128/82 97
05/06/24 11:00 05/06/24 11:00 05/06/24 11:00 05/06/24 11:00 05/06/24 11:00
I&O
05/05/24 05/06/24 05/07/24
06:59 06:59 06:59
Intake Total 4560 / 4560 4232 / 4232
Output Total 4870 / 4870 3905 / 3905
Balance -310 / -310 327 / 327
Review of Systems
-
All other systems: Reviewed and negative
Physical Exam
-
General: Well Developed, Well Nourished and No Apparent Distress
HEENT: Normocephalic and Atraumatic
Respiratory: Clear to Auscultation
Cardiac: Regular Rhythm and S1/S2
GI: Soft, Nontender, Nondistended and Normal Bowel Sounds
Musculoskeletal: No Clubbing, No Cyanosis and No Edema
Neuro: Awake, Oriented and No Motor Deficits
[2024-05-06 14:45] VITALS: BP 135/78
[2024-05-06] MEDS: STERILE WATER FOR INJECTION IV (16:06)
[2024-05-06 16:41] VITALS: BP 124/85
--- NOTE | 2024-05-06 16:53 | CM ---
Patient discharge to home.
No needs
IMM - n/a
PLAN: Home, no needs
son to transport
--- NOTE | 2024-05-06 16:55 | W.DCSUMMARY ---
Documented by User: Iva Butt MD, Resident 05/06/24 17:05
Discharge Summary
Discharge Data
Date of Admission: 05/03/24
Date of Discharge: 05/06/24
-
Pending Results: No
Hospital Course
Discharging Physician :
Shira Dobson,Iva Butt
Disposition :
Home
Primary care physician :
Darlene Anthony
Principal Discharge diagnosis :
Hematemesis secondary to esophageal varices(resolved)/Recurrent ascites/cirrhosis
Chronic Discharge diagnosis :
Elijah disease status post liver transplantation 2005
AVM s/p craniectomy and plate placed
Essential hypertension
Depression
PTSD
Hospital Course :
Samuel is a 53-year-old male with history of Elijah's disease s/p liver transplant in 2005 from a 65-year-old liver donor who presents with hematemesis. GI consulted, endoscopy done grade 3 varices found, 5 bands placed, patient reported no further
episodes of hematemesis. Continued Protonix IV and octreotide infusion for 72 hours. During the stay patient did not have any further episodes of hematemesis or melena.
Patient did had abdominal distention, IR consulted, successful ultrasound guided paracentesis done, drained 4.2 L of fluid, 25 g of albumin replaced, fluid analysis negative for SBP.
Patient feeling well. His case was d/w with [facility] and no in hospital transfer given low MELD. He has FU with Dr David ANDERSON at [facility] on 05/13.
Continue Protonix 40 mg twice daily for 8 weeks, Lasix 40 mg daily, Aldactone 100 mg daily and Cipro to complete 7-day course with last dose on May 10, 2024
Important imaging findings :
Successful ultrasound-guided paracentesis, yielding 4200 milliliters of ascitic fluid-Paracentesis done 05/04 neg for SBP
Discharge Plan
-
Patient Disposition: Home (Routine Discharge)
Discharge Diagnosis/Procedures: Hematemesis secondary to esophageal varices(resolved)/Recurrent ascites/cirrhosis
Condition: Fair
Diet: Regular
Activity: As tolerated
Driving Restrictions: As prior to admission
Bathing Restrictions: OK to Shower
Referrals:
Darlene Anthony MD [Family Provider] - in less than 1 week
Prescriptions:
New
ciprofloxacin HCl 500 mg Tablet
500 mg PO DAILY 4 Days Qty: 4 0RF
lactulose 20 gram/30 mL Solution
20 g PO BID 30 Days Qty: 1800 1RF
pantoprazole [Protonix] 40 mg tablet,delayed release (DR/EC)
40 mg PO BID 56 Days Qty: 112 0RF
Continued
mirtazapine 15 MG tablet
15 mg PO HS
escitalopram oxalate 10 MG tablet
10 mg PO HS
furosemide 40 mg Tablet
40 mg PO DAILY
carvedilol 6.25 mg Tablet
6.25 mg PO BID
spironolactone 100 mg Tablet
100 mg PO DAILY
tacrolimus 0.5 mg Capsule
0.5 mg PO Q12H
simethicone 80 mg Tablet,Chewable
80 mg PO BID
magnesium oxide 400 mg magnesium Tablet
400 mg PO BID
Discharge Orders:
Discharge Patient (As Directed); Ordered 05/06/24
Ordered By: Iva Butt
Discharge Date and Time
Discharge Date/Time: 05/06/24 17:10
Print Language: [place]

Documented by User: Shira Dobson MD 05/06/24 18:10
Discharge Summary
Discharge Data
Date of Admission: 05/03/24
Date of Discharge: 05/06/24
Hospital Course
Discharging Physician :
Shira Dobson,Iva Butt
Disposition :
Home
Primary care physician :
Darlene Anthony
Principal Discharge diagnosis :
Hematemesis secondary to esophageal varices (resolved)
Recurrent ascites/cirrhosis
Chronic Discharge diagnosis :
Elijah disease status post liver transplantation 2005
AVM s/p craniectomy and plate placed
Essential hypertension
Depression
PTSD
Hospital Course :
Samuel is a 53-year-old male with history of Elijah's disease s/p liver transplant in 2005 (from a 65-year-old liver donor) who presented with hematemesis. GI consulted, endoscopy done, noted grade 3 varices and 5 bands placed. Patient reported no
further episodes of hematemesis. He received Protonix and octreotide infusion for 72 hours.
Patient also had abdominal distention, and IR was consulted and performed paracentesis, drained 4.2 L of fluid and 25 g of albumin given. Fluid analysis was negative for SBP.
He was started with Lactulose this admission which he can continue going forward. 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
He can continue Protonix 40 mg twice daily for 8 weeks, Lasix 40 mg daily, Aldactone 100 mg daily and Cipro to complete 7-day course with last dose on May 10, 2024
Important imaging findings :
Successful ultrasound-guided paracentesis, yielding 4200 milliliters of ascitic fluid-Paracentesis done 05/04 neg for SBP
Discharge Plan
-
Patient Disposition: Home (Routine Discharge)
Discharge Diagnosis/Procedures: Hematemesis secondary to esophageal varices(resolved)/Recurrent ascites/cirrhosis
Condition: Fair
Diet: Regular
Activity: As tolerated
Driving Restrictions: As prior to admission
Bathing Restrictions: OK to Shower
Referrals:
Darlene Anthony MD [Family Provider] - in less than 1 week
Prescriptions:
New
ciprofloxacin HCl 500 mg Tablet
500 mg PO DAILY 4 Days Qty: 4 0RF
lactulose 20 gram/30 mL Solution
20 g PO BID 30 Days Qty: 1800 1RF
pantoprazole [Protonix] 40 mg tablet,delayed release (DR/EC)
40 mg PO BID 56 Days Qty: 112 0RF
Continued
mirtazapine 15 MG tablet
15 mg PO HS
escitalopram oxalate 10 MG tablet
10 mg PO HS
furosemide 40 mg Tablet
40 mg PO DAILY
carvedilol 6.25 mg Tablet
6.25 mg PO BID
spironolactone 100 mg Tablet
100 mg PO DAILY
tacrolimus 0.5 mg Capsule
0.5 mg PO Q12H
simethicone 80 mg Tablet,Chewable
80 mg PO BID
magnesium oxide 400 mg magnesium Tablet
400 mg PO BID
Discharge Orders:
Discharge Patient (As Directed); Ordered 05/06/24
Ordered By: Iva Butt
Discharge Date and Time
Discharge Date/Time: 05/06/24 17:10
Print Language: [place]
== END 2024-05-06 17:10 | disposition home or self-care (01) | DRG 369 ==
LOC: 2 SOUTH 16:20
PROVIDERS: Nurse Practitioner Adult Health; Physician Assistant; Radiology Vascular & Interventional Radiology; Registered Nurse; ADMITTING PHYSICIAN Internal Medicine; ATTENDING PHYSICIAN Internal Medicine; CONSULT PHYSICIAN Internal Medicine Gastroenterology; EMERGENCY PHYSICIAN Emergency Medicine; FAMILY PHYSICIAN Emergency Medicine
PROC: 06L38CZ Occlusion of Esophageal Vein with Extraluminal Device, Via Natural or Artificial Opening Endoscopic (ICD-10-PCS; 2024-05-03)
PROC: 0W9G3ZZ Drainage of Peritoneal Cavity, Percutaneous Approach (ICD-10-PCS; 2024-05-04)
DX: I85.11 Secondary esophageal varices with bleeding (principal); K76.6 Portal hypertension; R18.8 Other ascites; Z94.4 Liver transplant status; K74.60 Unspecified cirrhosis of liver; I10 Essential (primary) hypertension; F32.A Depression, unspecified; F41.9 Anxiety disorder, unspecified; F43.10 Post-traumatic stress disorder, unspecified; K21.00 Gastro-esophageal reflux disease with esophagitis, without bleeding; K31.89 Other diseases of stomach and duodenum; Z79.899 Other long term (current) drug therapy
CPT/HCPCS: 49083; 80048; 80053; 82042; 82140; 83735; 84157; 85014; 85018; 85025; 85027; 85610; 86850; 86900; 86901; 87015; 87070; 87205; 89051; 96365; 96375; 99291; P9047

== ENCOUNTER → 2024-06-13 13:07 | Outpatient (REF) | payer OTHER, SELFPAY | LOC: PAVMRI 13:07 | PROVIDERS: ATTENDING PHYSICIAN Physician Assistant Medical; FAMILY PHYSICIAN Family Medicine | DX: R17 Unspecified jaundice (principal); R79.89 Other specified abnormal findings of blood chemistry | CPT/HCPCS: 74183; A9575 ==

== ENCOUNTER 2024-09-13 06:23 | Day surgery (SDC) | payer OTHER, SELFPAY | END 2024-09-13 15:50 | disposition home or self-care (01) | LOC: GI 06:23 | PROVIDERS: ATTENDING PHYSICIAN Internal Medicine Gastroenterology | DX: I85.01 Esophageal varices with bleeding (principal); K31.89 Other diseases of stomach and duodenum; K76.6 Portal hypertension | CPT/HCPCS: 43244 ==

== ENCOUNTER 2024-10-09 06:26 | Day surgery (SDC) | payer OTHER, SELFPAY | END 2024-10-09 10:16 | disposition home or self-care (01) | LOC: GI 06:26 | PROVIDERS: ATTENDING PHYSICIAN Internal Medicine Gastroenterology | DX: K74.60 Unspecified cirrhosis of liver (principal); K76.6 Portal hypertension; K31.89 Other diseases of stomach and duodenum; I85.10 Secondary esophageal varices without bleeding | CPT/HCPCS: 43244 ==

== ENCOUNTER 2024-11-14 06:36 | Day surgery (SDC) | payer OTHER, SELFPAY | END 2024-11-14 13:10 | disposition home or self-care (01) | LOC: GI 06:36 | PROVIDERS: ATTENDING PHYSICIAN Internal Medicine Gastroenterology | DX: I85.00 Esophageal varices without bleeding (principal); K76.6 Portal hypertension; K31.89 Other diseases of stomach and duodenum | CPT/HCPCS: 43244 ==

== ENCOUNTER 2024-12-12 06:14 | Day surgery (SDC) | payer OTHER, SELFPAY | END 2024-12-12 08:38 | disposition home or self-care (01) | LOC: GI 06:14 | PROVIDERS: ATTENDING PHYSICIAN Internal Medicine Gastroenterology; FAMILY PHYSICIAN Family Medicine | DX: I85.10 Secondary esophageal varices without bleeding (principal); K31.89 Other diseases of stomach and duodenum; K31.9 Disease of stomach and duodenum, unspecified | CPT/HCPCS: 43244 ==

== ENCOUNTER 2025-01-09 06:22 | Day surgery (SDC) | payer OTHER, SELFPAY | END 2025-01-09 12:35 | disposition home or self-care (01) | LOC: GI 06:22 | PROVIDERS: ATTENDING PHYSICIAN Internal Medicine Gastroenterology | DX: R12 Heartburn (principal); K76.6 Portal hypertension; I85.00 Esophageal varices without bleeding; L90.5 Scar conditions and fibrosis of skin; K31.89 Other diseases of stomach and duodenum | CPT/HCPCS: 43239 ==

== ENCOUNTER → 2025-03-28 08:54 | Outpatient (REF) | payer OTHER, SELFPAY | LOC: PAVMRI 08:54 | PROVIDERS: ATTENDING PHYSICIAN Internal Medicine Transplant Hepatology; FAMILY PHYSICIAN Family Medicine | DX: Z94.4 Liver transplant status (principal) | CPT/HCPCS: 74183; A9575 ==